=== PATIENT | male | born 1970 | race African-American/Black ===

== ENCOUNTER 2018-12-16 18:27 | Inpatient (IN) | payer OTHER ==
--- NOTE | 2018-12-16 18:44 | PDOC ---
Rapid Medical Evaluation Time Seen by Provider: 12/16/18 18:43 Medical Evaluation: 12/16/18 18:43 HPI: Abdominal pain x 2 days PE: No gross deficits ORDERS: Belly labs Discharge Disposition - Diagnosis Abdominal pain - Referrals - Patient Instructions - Post Discharge Activity
[2018-12-16 18:47] VITALS: BMI 18.8
[2018-12-16 21:11] LABS: BASO % 0.8 % (0-2.0); EOS % 0.1 % (0-4.5); HEMATOCRIT 40.1 % (35.4-49); HEMOGLOBIN 12.9 GM/dL (11.7-16.9); LYMPH % 7.5 % (8-40); MCH 24.3 pg (25.7-33.7); MCHC 32.1 g/dl (32.0-35.9); MEAN CELL VOLUME 75.7 fl (80-96); MEAN PLT VOLUME 8.8 fl (7.5-11.1); MONO % 5.1 % (3.8-10.2); NEUT % 86.5 % (42.8-82.8); PLATELET COUNT 161 K/MM3 (134-434); RBC 5.29 M/mm3 (4.00-5.60); RDW 14.3 % (11.9-15.9); WHITE BLOOD COUNT 10.6 K/mm3 (4.0-10.0)
--- NOTE | 2018-12-16 21:16 | PDOC ---
*Physical Exam - Vital Signs Last Vital Signs Temp Pulse Resp BP Pulse Ox 97.9 F 65 26 H 117/76 99 12/16/18 18:44 12/16/18 18:44 12/16/18 18:44 12/16/18 18:44 12/16/18 18:44 ED Treatment Course - LABORATORY CBC & Chemistry Diagram: 12/16/18 20:50 12/16/18 20:50 Medical Decision Making - Medical Decision Making 12/16/18 21:16 Patient seen by the advanced practice provider under my direct supervision. Ancillary testing reviewed as necessary. I agree with plan as outlined by the advanced practice provider. *DC/Admit/Observation/Transfer Diagnosis at time of Disposition: Pulmonary infarct - Discharge Dispostion Condition at time of disposition: Fair - Referrals - Patient Instructions - Post Discharge Activity
[2018-12-16 21:39] LABS: ALBUMIN 3.8 g/dl (3.4-5.0); BILIRUBIN,TOTAL 0.5 mg/dL (0.2-1); BLOOD UREA NITROGEN 12.9 mg/dL (7-18); CALCIUM 9.1 mg/dL (8.5-10.1); POTASSIUM 4.3 mmol/L (3.5-5.1)
--- NOTE | 2018-12-16 21:52 | PDOC ---
History of Present Illness - General Chief Complaint: Pain, Acute Stated Complaint: PAIN TO RT SIDE Time Seen by Provider: 12/16/18 18:43 History Source: Patient Exam Limitations: No Limitations - History of Present Illness Travel History: No Initial Comments: 12/16/18 21:34 HISTORY OF PRESENT ILLNESS: 48-year-old male denies medical history of presents emergency department for evaluation of right-sided abdominal pain over the past 3 days. Patient reports the pain came on all of a sudden slowly progressed throughout his abdomen. Patient is unable to identify exact location of his pain at this time. Patient is unable to identify any aggravating or alleviating factors. Patient denies any nausea, vomiting, constipation, diarrhea, dysuria or hematuria. Patient reports he drinks approximately one cup of raji 4 times a week. No recent travel or sick contacts. PAST MEDICAL HISTORY: Denies past medical history SURGICAL HISTORY: Denies ALLERGIES: No known drug allergies REVIEW OF SYSTEMS General/Constitutional: Denies fever or chills. Denies weakness, weight change. HEENT: Denies change in vision. Denies ear pain or discharge. Denies sore throat. Cardiovascular: Denies chest pain or shortness of breath. Respiratory: (+)cough Gastrointestinal: see HPI Genitourinary: Denies dysuria, frequency, or change in urination. Musculoskeletal: Denies joint or muscle swelling or pain. Denies neck or back pain. Skin and breasts: Denies rash or easy bruising. Neurologic: Denies headache, vertigo, loss of consciousness, or loss of sensation. Psychiatric: Denies depression or anxiety. Endocrine: Denies increased thirst. Denies abnormal weight change. Hematologic/Lymphatic: Denies anemia, easy bleeding, or history of blood clots. Allergic/Immunologic: Denies hives or skin allergy. Denies latex allergy. PHYSICAL EXAM General Appearance: Well-appearing, appropriately dressed. No apparent distress , no intoxication. Respiratory/Chest: Lungs CTAB. No shortness of breath, chest tenderness, respiratory distress, accessory muscle use. No crackles, rales, rhonchi, stridor , wheezing, dullness Cardiovascular: RRR. S1, S2. No JVD, murmur, bradycardia, tachycardia. Vascular Pulses: Dorsalis-Pedis (R): 2+, Dorsalis-Pedis (L): 2+ Gastrointestinal/Abdominal: Normal bowel sounds. Abdomen soft, non-distended. Diffuse tenderness with guarding. No rebound tenderness. No organomegaly, pulsatile mass, hernia, hepatomegaly, splenomegaly. Lymphatic: No adenopathy, tenderness. Musculoskeletal/Extremities: Normal inspection. FROM of all extremities, normal capillary refill. Pelvis Stable. No CVA tenderness. No tenderness to extremities, pedal edema, swelling, erythema or deformity. I Past History - Past Medical History Allergies/Adverse Reactions: Allergies Allergy/AdvReac Type Severity Reaction Status Date / Time No Known Allergies Allergy Verified 12/16/18 18:43 Home Medications: Ambulatory Orders NK [No Known Home Medication] 12/16/18 COPD: No - Suicide/Smoking/Psychosocial Hx Smoking History: Current every day smoker Information on smoking cessation initiated: No Hx Alcohol Use: No Drug/Substance Use Hx: No *Physical Exam - Vital Signs Last Vital Signs Temp Pulse Resp BP Pulse Ox 97.9 F 65 26 H 117/76 99 12/16/18 18:44 12/16/18 18:44 12/16/18 18:44 12/16/18 18:44 12/16/18 18:44 ED Treatment Course - LABORATORY CBC & Chemistry Diagram: 12/17/18 08:18 12/17/18 08:18 - RADIOLOGY Radiology Studies Ordered: Category Date Time Status ABDOMEN & PELVIS CT WITH CONTR [CT] Stat CT Scan 12/16/18 21:33 Ordered CHEST PA & LAT [RAD] Stat Radiology 12/16/18 21:33 Ordered Medical Decision Making - Medical Decision Making 12/16/18 21:52 A/P: 48-year-old male with diffuse abdominal pain for 3 days Differential diagnosis includes but is not limited to- perforation, obstruction , diverticulitis, urinary tract infection, hepatitis, choledocholithiasis, cholecystitis Labs Urine CT of the abdomen and pelvis with oral and IV contrast Normal saline 1 L bolus Morphine 2 mg IV Reassess 12/17/18 00:46 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 Likely bilateral PEs but has received IV contrast for abdominal exam unable to repeat. EKG Cardiac profile Guaiac Anticoagulation Dilaudid Admit to the hospitalist service *DC/Admit/Observation/Transfer Diagnosis at time of Disposition: Pulmonary infarct - Discharge Dispostion Condition at time of disposition: Fair Decision to Admit order: Yes - Referrals - Patient Instructions - Post Discharge Activity
[2018-12-16] MEDS ORDERED: SODIUM CHLORIDE 1,000 ML IV STA (21:53)
[2018-12-16] MEDS ORDERED: ONDANSETRON 4 MG/2 ML VIAL IVPUSH ONE (21:53)
[2018-12-16] MEDS ORDERED: morphine CARPU-JECT 2 MG/1 ML DISP.SYRIN IVPUSH ONE (21:53)
[2018-12-16] MEDS ORDERED: ONDANSETRON 4 MG/2 ML VIAL ONE (21:59)
[2018-12-16] MEDS ORDERED: MORPHINE SULFATE 2 MG/ML VIAL ONE (21:59)
[2018-12-17] MEDS ORDERED: HYDROmorphone HCL CARPU-JECT 2 MG/1 ML DISP.SYRIN IVPUSH ONE (00:47)
[2018-12-17] MEDS ORDERED: HYDROmorphone HCl 2 MG/ML VIAL ONE (00:47)
--- NOTE | 2018-12-17 00:52 | PN ---
Teaching Attending Note ATTENDING PHYSICIAN STATEMENT I saw and evaluated the patient. I reviewed the resident's note and discussed the case with the resident. I agree with the resident's findings and plan as documented. Seen and examined; please refer to resident note for further historical information. Briefly, this is a 48 y/o male presenting for R-sided abdominal pain found to have benign findings on abd CT but was found to have b/l pulmonary emboli on exam. He recently took a long train ride up to [facility] from [place]. He is a daily marijuana smoker and occasional tobacco smoker. Not on home AC, just moved to town from [place]. Pain was sudden onset. Admitting to telemetry with pulmonary consult VS, labs, imaging reviewed NAD, AAO, resting in bed Not tachy, s1/2 NC AT EOMI PERRLA NT ND +BS CN2-12 wnl, no fnd Normal mood, appropriate behavior EKG reviewed CXR reviewed CT personally reviewed; prelim report shows potential b/l PE with infarcts. ASSESSMENT AND PLAN: Patient presenting with abd pain found to have potential b/l PE/infarction. # Potential PE with infarction -Checking repeat troponin, check echo for R-sided strain (bedside study in ER showed some R-sided hyperdynamic changes and dilated IVC). 1mg/kg lovenox and plan to transition to PO NOAC in AM. -Consulting pulmonary -Incentive spirometry -Hypercoag workup # Marijuana Abuse -Told to stop # Tobacco Abuse -Told to stop Full Code
[2018-12-17] MEDS ORDERED: HEPARIN NA (PORCINE) 5,000 UNITS/ML 1ML VIAL IVPUSH PRN (00:53)
[2018-12-17] MEDS ORDERED: HEPARIN INFUSION - 25,000 UNITS/500 ML INFUS.BAG IVPB ONE (01:39)
[2018-12-17] MEDS: HEPARIN - 25,000 UNIT in SODIUM CHLORIDE 495 ML IV SCH (02:10)
--- NOTE | 2018-12-17 02:17 | HP ---
CHIEF COMPLAINT: Right rib pain PCP: none HISTORY OF PRESENT ILLNESS: 48 y/o M, pmh of juan, immigrated from [place], presents w/ lateral rib pain of 2 day duration that worsened today morning. 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 This morning the pain became severe and he was moderately SOB which led him to the ED. He said he had smoked marijuana and cigarettes to relieve the pain but there was no response. Pt gives no previous hx of similar episodes. Pt reports he has not seen a doctor in several years. He reports negative TB test several years ago and an abx treated gonorrhea infxn. Pt admits to night sweats after drinking cessation for a few weeks several months ago, recent weight loss which he attributes to landscaping, new onset hemoptysis in the CT room today. Currently, pt is stable and has no c/o. Denies f/c/n/v, sob, chest pain, diarrhea, numbness, tingling. ROS is negative. ER course was notable for: (1) Heparin Drip started in ED (2) CT a/p w/ contrast- deep filling defects in b/l lower lobe 2/2 to pulmonary emboli+infract, right middle lobe and left middle lobe ground glass opacities likely 2/2 to infract or atelectasis. (3) Dilaudid given for pain Recent Travel: last travel 29 years ago- [facility] PAST MEDICAL HISTORY: gonorrhea infxn in 1990. No other hx PAST SURGICAL HISTORY: denies Social History: Smoking: marijuana- 20 blunts a day, ciggs- 3-4/day Alcohol: half a bottle in a week Drugs: denies Family History: Mother- DM- Father- from murder Allergies No Known Allergies Allergy (Verified 12/16/18 18:43) HOME MEDICATIONS: Home Medications Medication Instructions Recorded NK [No Known Home Medication] 12/16/18 REVIEW OF SYSTEMS CONSTITUTIONAL: Admits: weight loss, night sweat Absent: fever, chills, diaphoresis, generalized weakness, malaise, loss of appetite, CARDIOVASCULAR: Absent: chest pain, syncope, palpitations, irregular heart rate, lightheadedness , RESPIRATORY: Admits: mild shortness of breath, hemoptysis Absent: cough, dyspnea with exertion, wheezing, GASTROINTESTINAL: Absent: abdominal pain, abdominal distension, nausea, vomiting, diarrhea, constipation, melena, hematochezia GENITOURINARY: Absent: dysuria, frequency, hematuria, flank pain, genital pain NEUROLOGIC: Absent: headache, focal weakness, dizziness, unsteady gait, seizure, bladder or bowel incontinence PSYCHIATRIC: Absent: anxiety PHYSICAL EXAMINATION Vital Signs - 24 hr Last Vital Signs Temp Pulse Resp BP Pulse Ox 97.9 F 78 26 H 131/96 95 12/16/18 18:44 12/17/18 00:50 12/17/18 00:50 12/17/18 00:50 12/17/18 00:50 GENERAL: Awake, alert, and fully oriented, in no acute distress. EYES: Pupils equal, round and reactive to light, extraocular movements intact NECK: Supple without lymphadenopathy, JVD, or masses. LUNGS: Decreased breath sounds b/l lower lobes. Breath sounds equal, clear to auscultation bilaterally. No wheezes, and no crackles. Accessory muscle use can be appreciated. Hemoptysis collected in CT room. HEART: Regular rate and rhythm, normal S1 and S2 without murmur, rub or gallop. ABDOMEN: Soft, nontender, not distended, normoactive bowel sounds, no guarding, no rebound, no masses. No hepatomegaly or splenomegaly. UPPER EXTREMITIES: 2+ pulses, warm, well-perfused. No cyanosis. No peripheral edema. LOWER EXTREMITIES: 2+ pulses, warm, well-perfused. No peripheral edema. PSYCHIATRIC: Cooperative. Good eye contact. Appropriate mood and affect. Laboratory Results - last 24 hr CBC, BMP 12/16/18 20:50 12/16/18 20:50 ASSESSMENT/PLAN: 48 y/o M, pmh of gonnorhea, presents w/ lateral rib pain of 2 day duration that worsened today morning 2/2 CT confirmed pulmonary infract. #)Pulmonary infract 2/2 to PE Heparin bolus given Heparin drip started FOBT neg EKG- no acute changes, QTc 447 CXR- right lower lobe changes and opacity noticeable CT a/p w/ contrast- deep filling defects in b/l lower lobe 2/2 to pulmonary emboli+infract, right middle lobe and left middle lobe ground glass opacities likely 2/2 to infract or atelectasis. CTA chest ordered because defect was seen on CT a/p which only showed lower lobes but CTA cannot be done at this time due to recent contrast use, wait 24-[address] Pulmonary consulted- Dr. Wolf- will consider V/Q scan if necessary before CTA chest Pt on Oxygen nc 2 Ipm Continous cardiac monitoring D-dimer ordered Protein C + S ordered PT/INR ordered Sputum Cx + Urine Cx ordered Incentive Spirometry #)Night sweats, weight loss TB test ordered HIV testing ordered Chlamydia testing ordered Anti-nuclear abs + ESR + CRP ordered #)DVT ppx Heparin drip FEN: Regular diet Dispo: monitor tele, f/u on w/ Pulmonary for V/Q scan vs CTA chest Visit type - Emergency Visit Emergency Visit: Yes ED Registration Date: 12/17/18 Care time: The patient presented to the Emergency Department on the above date and was hospitalized for further evaluation of their emergent condition. - New Patient This patient is new to me today: Yes Date on this admission: 12/23/18 - Critical Care Critical Care patient: No ATTENDING PHYSICIAN STATEMENT I saw and evaluated the patient. I reviewed the resident's note and discussed the case with the resident. I agree with the resident's findings and plan as documented. SUBJECTIVE: OBJECTIVE: ASSESSMENT AND PLAN:
[2018-12-17 03:24] LABS: INR 1.07 (0.83-1.09); PROTHROMBIN TIME (PATIENT) 12.6 SEC (9.7-13.0)
--- NOTE | 2018-12-17 08:20 | PN ---
Teaching Attending Note Name of Resident: Roland Tellez ATTENDING PHYSICIAN STATEMENT I saw and evaluated the patient. I reviewed the resident's note and discussed the case with the resident. I agree with the resident's findings and plan as documented. SUBJECTIVE: C/O hemoptysis and cough no chest pain or SOB OBJECTIVE: Vital Signs Temperature 97.9 F 12/16/18 18:44 Pulse Rate 82 12/17/18 06:09 Respiratory Rate 20 12/17/18 06:09 Blood Pressure 116/84 12/17/18 06:09 O2 Sat by Pulse Oximetry (%) 100 12/17/18 06:09 HEENT: Mm moist, no anemia NECK: No significant LN CHEST: Occasional crepts +, no wheezing CVS; S1S2 R no m/g/r ABD: No distention, non tender Bs + EXT: no Edema feet, no calf tenderness CBC, BMP 12/17/18 08:18 12/17/18 08:18 EKG: no acute ST T changes CT abd: Rt LL infiltrate B/L Lung infarct CXR: basal infiltrates ECHO: Normal LE Doppler: No DVT ASSESSMENT AND PLAN:48 yrs old man admitted with hemoptysis, abd pain CT abd shows B/LL Infarct Rt sided infiltrates, CT chest is pending Impression; B/L PE ? DVT scn -ve only risk factor is travelling from [place] to [facility] by train, CTA with PE [protocol is pending needs w/u for age appropriate/ risk specific malignancy w/u CT chest (smoker) PSA, HIV testing, sickle cell trait, Pulmonary consult F/u pending w/u considering hemoptysis will defer Lovenox or NOAC, consider hematology consult. Pneumonia; will treat as CABP Ceftriaxone and Azithromycine f/u Sputum culture and Gram stain Problem List - Problems (1) Pulmonary infarct Code(s): I26.99 - OTHER PULMONARY EMBOLISM WITHOUT ACUTE COR PULMONALE (2) Pneumonia Code(s): J18.9 - PNEUMONIA, UNSPECIFIED ORGANISM
[2018-12-17 08:34] LABS: HEMATOCRIT 36.9 % (35.4-49); HEMOGLOBIN 11.9 GM/dL (11.7-16.9); MCH 23.9 pg (25.7-33.7); MCHC 32.1 g/dl (32.0-35.9); MEAN CELL VOLUME 74.5 fl (80-96); MEAN PLT VOLUME 8.2 fl (7.5-11.1); PLATELET COUNT 145 K/MM3 (134-434); RBC 4.96 M/mm3 (4.00-5.60); RDW 14.4 % (11.9-15.9); WHITE BLOOD COUNT 8.7 K/mm3 (4.0-10.0)
[2018-12-17 08:51] LABS: URINE APPEARANCE CLEAR; URINE BILIRUBIN NEGATIVE (NEGATIVE); URINE COLOR YELLOW; URINE GLUCOSE (UA) NEGATIVE (NEGATIVE); URINE KETONE NEGATIVE (NEGATIVE)
[2018-12-17 08:52] LABS: URINE LEUK ESTERASE NEGATIVE (NEGATIVE); URINE NITRITE NEGATIVE (NEGATIVE); URINE PROTEIN NEGATIVE (NEGATIVE); URINE UROBILINOGEN 0.2 mg/dL (0.2-1.0)
[2018-12-17 08:57] LABS: INR 1.06 (0.83-1.09); PROTHROMBIN TIME (PATIENT) 12.5 SEC (9.7-13.0)
[2018-12-17 09:00] LABS: ACTIVATED PTT 37.6 SECONDS (25.2-36.5)
[2018-12-17 09:13] LABS: ALBUMIN 3.4 g/dl (3.4-5.0); BILIRUBIN,TOTAL 0.9 mg/dL (0.2-1); BLOOD UREA NITROGEN 7.8 mg/dL (7-18); CALCIUM 8.7 mg/dL (8.5-10.1); CREATININE 0.8 mg/dL (0.55-1.3); TOT PROT 7.1 g/dl (6.4-8.2)
--- NOTE | 2018-12-17 11:25 | EKG ---
Test Reason : Blood Pressure : / mmHG Vent. Rate : 080 BPM Atrial Rate : 080 BPM P-R Int : 126 ms QRS Dur : 098 ms QT Int : 388 ms P-R-T Axes : 061 046 043 degrees QTc Int : 447 ms NORMAL SINUS RHYTHM NORMAL ECG NO PREVIOUS ECGS AVAILABLE Confirmed by Thomas Lanier MD ([id number]) on 12/17/2018 11:24:52 AM Referred By: Confirmed By:Thomas Lanier MD
--- NOTE | 2018-12-17 11:53 | ECHO ---
Version: 1 Name: MARIAH TYLER Exam: Adult Echocardiogram Study Date: 12/17/2018, 9:54 AM Age: 48 Years MMode/2D Measurements & Calculations IVSd: 0.79 cm LVIDs: 2.6 cm LVIDd: 4.0 cm LVPWd: 0.77 cm ACS: 2.20 cm LVOT diam: 1.99 cm Doppler Measurements & Calculations MV E max osmany: 84.9 cm/sec Med E/e': 7.1 MV A max osmany: 71.6 cm/sec Med Peak E' Osmany: 11.9 cm/sec MV E/A: 1.19 Lat E/e': 4.7 Lat Peak E' Osmany: 18.0 cm/sec MR max P.5 mmHg Ao max P.1 mmHg DIDI(I,D): 2.7 cm Ao mean P.1 mmHg LV V1 mean: 64.3 cm/sec Ao V2 max: 113.4 cm/sec LV V1 mean P.06 mmHg TR max osmany: 240.8 cm/sec TR max P.7 mmHg Left Ventricle The left ventricular size, thickness and function are normal. Right Ventricle The right ventricle is normal in size and function. Atria Normal left and right atrial size and function. Mitral Valve The mitral valve is normal in structure and function. There is trace mitral regurgitation. Tricuspid Valve The tricuspid valve is normal in structure and function. There is mild tricuspid regurgitation. Aortic Valve The aortic valve is normal in structure and function. Pulmonic Valve The pulmonic valve is normal in structure and function. Great Vessels The aortic root is normal size. Pericardium/Pleura There is no pericardial effusion. Summary Statements The left ventricular size, thickness and function are normal The right ventricle is normal in size and function. Normal left and right atrial size and function. The mitral valve is normal in structure and function. The tricuspid valve is normal in structure and function. The aortic valve is normal in structure and function. EF 64% PASP 32 mmHg MD Juan C Wiggins 12/17/2018, 10:52 AM Ordering Physician: Wilma Del Castillo Performed By: Shelly Reed
[2018-12-17] MEDS ORDERED: ENOXAPARIN NA (PORCINE) 60 MG/0.6 ML DISP.SYRIN SQ SCH (12:15)
[2018-12-17] MEDS ORDERED: AZITHROMYCIN IVPB 500 MG/250 ML BAG IVPB ONE ×2 (13:54→15:46)
[2018-12-17] MEDS: CEFTRIAXONE 1 GM in DEXTROSE 5%-WATER - 50 ML IVPB SCH (15:47)
[2018-12-17] MEDS: SODIUM CHLORIDE 1,000 ML IV SCH (15:47)
[2018-12-17] MEDS ORDERED: CEFTRIAXONE 1 GM/50 ML BAG ONE (15:47)
--- NOTE | 2018-12-17 16:10 | CON.PULM ---
Consult Consult Specialty:: PULM/CCM Referred by:: Hospitalist Reason for Consultation:: SOB / PE - History of Present Illness Chief Complaint: right lateral chest pain History of Present Illness: 48 M, originally from [facility]. (-) PPD when he came to the [place] more than 20 years ago. Active smoker of tobacco and marijuana. Recent train ride from [place] (second time he has taken that trip). No previous personal or family history of VTE. Admitted via the ER due to worsening right lateral muscle wall pain. CT of Abdomen and Pelvis revealed filling defects in bilateral LL circulation consistent with PE. Also noted were wedge like opacities in both lower lobes consistent with infarct +/- infiltrates. Patient reports a small amount of hemoptysis after his CT scan which he estimates as maybe enough to cover the tips of 1 to 2 fingers. No previous hemoptysis. No sick contacts. 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 - History Source History Provided By: Patient Limitations to Obtaining History: No Limitations - Past Medical History Pulmonary: Yes: Bronchitis. No: Asthma, Cancer, COPD, O2 Dependent, Pneumonia, Previously Intubated, Pulmonary Embolus, Pulmonary Fibrosis, Sleep Apnea - Alcohol/Substance Use Hx Alcohol Use: No - Smoking History Smoking history: Current every day smoker Home Medications - Allergies Allergies/Adverse Reactions: Allergies Allergy/AdvReac Type Severity Reaction Status Date / Time No Known Allergies Allergy Verified 12/16/18 18:43 - Home Medications Home Medications: Ambulatory Orders NK [No Known Home Medication] 12/16/18 Review of Systems - Review of Systems Constitutional: reports: Malaise, Unintentional Wgt. Loss. denies: Chills, Lethargy, Night Sweats Eyes: reports: No Symptoms HENT: reports: No Symptoms Neck: reports: No Symptoms Cardiovascular: reports: Chest Pain, Shortness of Breath. denies: Edema, Palpitations Respiratory: reports: Cough, Hemoptysis, SOB, SOB on Exertion. denies: Orthopnea, PND, Snoring, Wheezing Gastrointestinal: reports: No Symptoms Genitourinary: reports: No Symptoms Breasts: reports: No Symptoms Reported Musculoskeletal: reports: No Symptoms Integumentary: reports: No Symptoms Neurological: reports: No Symptoms Endocrine: reports: No Symptoms Hematology/Lymphatic: reports: No Symptoms Psychiatric: reports: No Symptoms Physical Exam Vital Sings: Vital Signs Temperature 97.9 F 08/12/19 18:44 Pulse Rate 84 12/17/18 09:57 Respiratory Rate 16 12/17/18 09:57 Blood Pressure 135/84 12/17/18 09:57 O2 Sat by Pulse Oximetry (%) 100 12/17/18 09:57 Constitutional: Yes: No Distress, Calm, Thin Eyes: Yes: Conjunctiva Clear, EOM Intact HENT: Yes: Atraumatic, Normocephalic Neck: Yes: Supple, Trachea Midline Cardiovascular: Yes: Regular Rate and Rhythm Respiratory: Yes: Cough, Poor Air Entry, Rhonchi, SOB on Exertion, Tachypnea, Wheezes. No: Accessory Muscle Use, Rales, SOB, Stridor ...Inspection: Yes: WNL ...Clubbing: No Gastrointestinal: Yes: Normal Bowel Sounds, Soft Renal/: Yes: WNL Musculoskeletal: Yes: WNL Extremities: Yes: WNL Edema: No Peripheral Pulses WNL: Yes Integumentary: Yes: WNL Neurological: Yes: WNL, Alert, Oriented ...Motor Strength: WNL Psychiatric: Yes: WNL, Alert, Oriented Labs: CBC, BMP 12/17/18 08:18 12/17/18 08:18 Imaging - Results Chest X-ray: Report Reviewed, Image Reviewed Cat Scan: Report Reviewed, Image Reviewed Problem List - Problems (1) Bilateral pulmonary embolism Code(s): I26.99 - OTHER PULMONARY EMBOLISM WITHOUT ACUTE COR PULMONALE (2) Smoker Code(s): F17.200 - NICOTINE DEPENDENCE, UNSPECIFIED, UNCOMPLICATED (3) Pneumonia Code(s): J18.9 - PNEUMONIA, UNSPECIFIED ORGANISM (4) Pulmonary infarct Code(s): I26.99 - OTHER PULMONARY EMBOLISM WITHOUT ACUTE COR PULMONALE Assessment/Plan ECHO to R/O Right heart strain (no clear evidence by CT criteria) Will need thrombosis workup O2 as needed Agree with empiric ABX for now to cover for CABP although this appears like infarct due to distribution Incentive Spirometry IVF: 2 liters as the patient received 2 loads of IV contrast Will need age appropriate malignancy screening (has had very poor medical follow up) Smoking cessation discussed Outpatient PFTs No evidence to suggest [facility] Will follow Thank you. Dr Ding
[2018-12-17] MEDS ORDERED: HEPARIN NA (PORCINE) 5,000 UNITS/ML 1ML VIAL ONE (17:17)
[2018-12-17] MEDS: HEPARIN NA (PORCINE) 5,000 UNITS/ML 1ML VIAL IVPUSH PRN (17:20)
--- NOTE | 2018-12-17 17:33 | PN ---
Physical Exam: SUBJECTIVE: Patient seen and examined at bedside. No acute events. OBJECTIVE: Vital Signs Period Temp Pulse Resp BP Sys/Wilson Pulse Ox Last 24 Hr 97.9 F-99.8 F 65-85 12-26 112-135/72-96 95-100 GENERAL: The patient is awake, alert, and fully oriented, in slight resp distress. HEAD: Normal with no signs of trauma. NECK: supple. LUNGS: Breath sounds difficult to assess due to patient not able to take full deep breath, mild wheezes b/l. HEART: Regular rate and rhythm, S1, S2 without murmur, rub or gallop. ABDOMEN: Soft, nontender, nondistended, no guarding, no rebound. EXTREMITIES: no tenderness to palpation of gastrocs, warm, well-perfused, no edema. NEUROLOGICAL: Cranial nerves II through XII grossly intact. Normal speech, gait not observed. PSYCH: Normal mood, normal affect. SKIN: Warm, dry, no rashes or lesions noted Laboratory Results - last 24 hr 12/16/18 12/16/18 12/17/18 20:50 20:50 00:50 WBC 10.6 H RBC 5.29 Hgb 12.9 Hct 40.1 MCV 75.7 L MCH 24.3 L MCHC 32.1 RDW 14.3 Plt Count 161 MPV 8.8 Absolute Neuts (auto) 9.1 H Neutrophils % 86.5 H Lymphocytes % 7.5 L Monocytes % 5.1 Eosinophils % 0.1 Basophils % 0.8 Nucleated RBC % 0 ESR PT with INR INR PTT (Actin FS) D-Dimer Sodium 138 Potassium 4.3 Chloride 103 Carbon Dioxide 29 Anion Gap 6 L BUN 12.9 Creatinine 1.0 Est GFR (CKD-EPI)AfAm 101.26 Est GFR (CKD-EPI)NonAf 87.37 Random Glucose 183 H Calcium 9.1 Total Bilirubin 0.5 AST 14 L ALT 21 Alkaline Phosphatase 78 Creatine Kinase Creatine Kinase Index CK-MB (CK-2) Troponin I C-Reactive Protein Total Protein 8.0 Albumin 3.8 Urine Color Urine Appearance Urine pH Ur Specific [place] Urine Protein Urine Glucose (UA) Urine Ketones Urine Blood Urine Nitrite Urine Bilirubin Urine Urobilinogen Ur Leukocyte Esterase Stool Occult Blood Negative 12/17/18 12/17/18 12/17/18 02:02 02:02 02:02 WBC RBC Hgb Hct MCV MCH MCHC RDW Plt Count MPV Absolute Neuts (auto) Neutrophils % Lymphocytes % Monocytes % Eosinophils % Basophils % Nucleated RBC % ESR PT with INR 12.60 INR 1.07 PTT (Actin FS) D-Dimer Sodium Potassium Chloride Carbon Dioxide Anion Gap BUN Creatinine Est GFR (CKD-EPI)AfAm Est GFR (CKD-EPI)NonAf Random Glucose Calcium Total Bilirubin AST ALT Alkaline Phosphatase Creatine Kinase 181 Creatine Kinase Index 0.5 CK-MB (CK-2) 1.0 Troponin I < 0.02 C-Reactive Protein 4.9 H Total Protein Albumin Urine Color Urine Appearance Urine pH Ur Specific [place] Urine Protein Urine Glucose (UA) Urine Ketones Urine Blood Urine Nitrite Urine Bilirubin Urine Urobilinogen Ur Leukocyte Esterase Stool Occult Blood 12/17/18 12/17/18 12/17/18 02:02 02:02 06:39 WBC RBC Hgb Hct MCV MCH MCHC RDW Plt Count MPV Absolute Neuts (auto) Neutrophils % Lymphocytes % Monocytes % Eosinophils % Basophils % Nucleated RBC % ESR 12 PT with INR INR PTT (Actin FS) D-Dimer 1488 H Sodium Potassium Chloride Carbon Dioxide Anion Gap BUN Creatinine Est GFR (CKD-EPI)AfAm Est GFR (CKD-EPI)NonAf Random Glucose Calcium Total Bilirubin AST ALT Alkaline Phosphatase Creatine Kinase Creatine Kinase Index CK-MB (CK-2) Troponin I C-Reactive Protein Total Protein Albumin Urine Color Yellow Urine Appearance Clear Urine pH 5.0 Ur Specific [place] 1.047 H Urine Protein Negative Urine Glucose (UA) Negative Urine Ketones Negative Urine Blood Negative Urine Nitrite Negative Urine Bilirubin Negative Urine Urobilinogen 0.2 Ur Leukocyte Esterase Negative Stool Occult Blood 12/17/18 12/17/18 12/17/18 07:45 08:18 08:18 WBC 8.7 RBC 4.96 Hgb 11.9 Hct 36.9 MCV 74.5 L MCH 23.9 L MCHC 32.1 RDW 14.4 Plt Count 145 MPV 8.2 Absolute Neuts (auto) Neutrophils % Lymphocytes % Monocytes % Eosinophils % Basophils % Nucleated RBC % ESR PT with INR INR PTT (Actin FS) 33.6 D-Dimer Sodium 136 Potassium 4.0 Chloride 103 Carbon Dioxide 29 Anion Gap 5 L BUN 7.8 Creatinine 0.8 Est GFR (CKD-EPI)AfAm 120.72 Est GFR (CKD-EPI)NonAf 104.16 Random Glucose 114 H Calcium 8.7 Total Bilirubin 0.9 AST 18 ALT 19 Alkaline Phosphatase 68 Creatine Kinase Creatine Kinase Index CK-MB (CK-2) Troponin I C-Reactive Protein Total Protein 7.1 Albumin 3.4 Urine Color Urine Appearance Urine pH Ur Specific [place] Urine Protein Urine Glucose (UA) Urine Ketones Urine Blood Urine Nitrite Urine Bilirubin Urine Urobilinogen Ur Leukocyte Esterase Stool Occult Blood 12/17/18 12/17/18 08:18 15:54 WBC RBC Hgb Hct MCV MCH MCHC RDW Plt Count MPV Absolute Neuts (auto) Neutrophils % Lymphocytes % Monocytes % Eosinophils % Basophils % Nucleated RBC % ESR PT with INR 12.50 INR 1.06 PTT (Actin FS) 37.6 H 49.7 H D-Dimer Sodium Potassium Chloride Carbon Dioxide Anion Gap BUN Creatinine Est GFR (CKD-EPI)AfAm Est GFR (CKD-EPI)NonAf Random Glucose Calcium Total Bilirubin AST ALT Alkaline Phosphatase Creatine Kinase Creatine Kinase Index CK-MB (CK-2) Troponin I C-Reactive Protein Total Protein Albumin Urine Color Urine Appearance Urine pH Ur Specific [place] Urine Protein Urine Glucose (UA) Urine Ketones Urine Blood Urine Nitrite Urine Bilirubin Urine Urobilinogen Ur Leukocyte Esterase Stool Occult Blood Active Medications Generic Name Dose Route Start Last Admin Trade Name Freq PRN Reason Stop Dose Admin Heparin Sodium (Porcine) 1,000 unit 12/17/18 00:53 12/17/18 17:20 Heparin - IVPUSH 1,000 unit PRN PRN Administration Heparin Heparin Sodium (Porcine) 5,000 unit 12/17/18 00:53 12/17/18 09:57 Heparin - IVPUSH 5,000 unit PRN PRN Administration Heparin Heparin Sodium (Porcine) 25, 500 mls @ 16 mls/hr 12/17/18 01:00 12/17/18 09: 57 000 unit/ Sodium Chloride IV 950 unit/hr TITR CORY 19 mls/hr Titration Protocol 800 UNIT/HR Ceftriaxone Sodium 1 gm/ 50 mls @ 100 mls/hr 12/17/18 14:30 12/17/18 15:47 Dextrose IVPB 100 mls/hr DAILY CORY Administration Sodium Chloride 1,000 mls @ 83 mls/hr 12/17/18 15:15 12/17/18 15:47 Normal Saline - IV 12/19/18 03:18 83 mls/hr ASDIR CORY Administration ASSESSMENT/PLAN: Images: CTA: acute PE, bibasilar atelect, very small rt pleural effusion, mild emphysema , several nonsepcific enlarged Rt hilar LN's, RLL pulm artery and distal segmental branches, acute segmental embolus noted w/in medial basal segment of LLL. CXR- right lower lobe changes and opacity noticeable CT a/p w/ contrast- deep filling defects in b/l lower lobe 2/2 to pulmonary emboli+infract, right middle lobe and left middle lobe ground glass opacities likely 2/2 to infract or atelectasis. 48 y/o M, w a PMH of gonnorhea, presents w/ lateral rib pain of 2 day duration that worsened today morning 2/2 CT confirmed pulmonary infract. #Acute pulmonary embolus 2/2 to possible recent train ride from [place] - needs further thrombosis w/u. - hemoptysis - Heparin gtt 500mL's @16Ml/hr plan is to switch to NOAC eventually. - FOBT neg EKG- no acute changes, QTc 447 - b/l duplex negative Pulmonary consulted: Dr. Ding- echo to r/o Rt heart strain (no clear evidency by CT criteria) . O2 as needed. Agrees w rocephin to cover CAP although appears to be infarct due to distribution. - Pt needs IVF 2L to cover the 2 loads of contrast. Sputum Cx, stain pending, UA legionella/strep negative. Pt on Oxygen nc 2 Ipm Continous cardiac monitoring [id number] Protein C + S ordered PT/INR 1.07, trop negative Incentive Spirometry #)Night sweats, weight loss, hemoptysis QFN ordered HIV testing ordered Chlamydia testing ordered Anti-nuclear abs + ESR + CRP 4.9 - sickle cell ordered, CTA now signs of malignancy. DVT ppx: Heparin drip FEN: Regular diet Dispo: monitor tele Visit type - Emergency Visit Emergency Visit: Yes ED Registration Date: 12/17/18 Care time: The patient presented to the Emergency Department on the above date and was hospitalized for further evaluation of their emergent condition. - New Patient This patient is new to me today: Yes Date on this admission: 12/17/18 - Critical Care Critical Care patient: No - Discharge Referral Referred to [facility] Med P.C.: No ATTENDING PHYSICIAN STATEMENT I saw and evaluated the patient. I reviewed the resident's note and discussed the case with the resident. I agree with the resident's findings and plan as documented. SUBJECTIVE: OBJECTIVE: ASSESSMENT AND PLAN:
[2018-12-17] MEDS ORDERED: ACETAMINOPHEN 1000 MG/100 ML VIAL (NON FORMULARY) IVPB ONE (20:33)
[2018-12-18] MEDS: HEPARIN - 25,000 UNIT in SODIUM CHLORIDE 495 ML IV SCH (03:37)
[2018-12-18] MEDS: SODIUM CHLORIDE 1,000 ML IV SCH (04:00)
[2018-12-18 07:35] LABS: BASO % 0.8 % (0-2.0); EOS % 0.3 % (0-4.5); HEMATOCRIT 36.8 % (35.4-49); LYMPH % 15.8 % (8-40); MCH 24.3 pg (25.7-33.7); MCHC 32.5 g/dl (32.0-35.9); MEAN CELL VOLUME 74.8 fl (80-96); MEAN PLT VOLUME 8.8 fl (7.5-11.1); MONO % 8.6 % (3.8-10.2); NEUT % 74.5 % (42.8-82.8); PLATELET COUNT 161 K/MM3 (134-434); RBC 4.92 M/mm3 (4.00-5.60); RDW 14.1 % (11.9-15.9); WHITE BLOOD COUNT 8.2 K/mm3 (4.0-10.0)
[2018-12-18 07:54] LABS: ALBUMIN 3.1 g/dl (3.4-5.0); BILIRUBIN,TOTAL 0.8 mg/dL (0.2-1); BLOOD UREA NITROGEN 7.2 mg/dL (7-18); CALCIUM 8.7 mg/dL (8.5-10.1); CREATININE 0.8 mg/dL (0.55-1.3); POTASSIUM 3.7 mmol/L (3.5-5.1); TOT PROT 6.8 g/dl (6.4-8.2)
[2018-12-18] MEDS ORDERED: cefTRIAXone SODIUM 1 GM VIAL ONE (11:14)
[2018-12-18] MEDS ORDERED: DEXTROSE 5%-WATER - 50 ML IVPB ONE (11:15)
[2018-12-18] MEDS: CEFTRIAXONE 1 GM in DEXTROSE 5%-WATER - 50 ML IVPB SCH (11:20)
--- NOTE | 2018-12-18 11:24 | PN ---
Progress Note, Physician History of Present Illness: PULMONARY ALERT,NO C/O SOB,+ HEMOPTYSIS,R SIDED LATERAL CHEST DISCOMFORT. ECHO NL RV - Current Medication List Current Medications: Active Medications Heparin Sodium (Porcine) (Heparin -) 1,000 unit IVPUSH PRN PRN PRN Reason: Heparin Last Admin: 12/17/18 17:20 Dose: 1,000 unit Heparin Sodium (Porcine) (Heparin -) 5,000 unit IVPUSH PRN PRN PRN Reason: Heparin Last Admin: 12/17/18 09:57 Dose: 5,000 unit Heparin Sodium (Porcine) 25, (000 unit/ Sodium Chloride) 500 mls @ 16 mls/hr IV TITR CORY; Protocol Last Admin: 12/18/18 03:37 Dose: 1,050 unit/hr, 21 mls/hr Ceftriaxone Sodium 1 gm/ (Dextrose) 50 mls @ 100 mls/hr IVPB DAILY CORY Last Admin: 12/17/18 15:47 Dose: 100 mls/hr Sodium Chloride (Normal Saline -) 1,000 mls @ 83 mls/hr IV ASDIR CORY Stop: 12/19/18 03:18 Last Admin: 12/17/18 15:47 Dose: 83 mls/hr - Objective Vital Signs: Vital Signs Temperature 98.9 F 12/18/18 06:00 Pulse Rate 90 12/18/18 06:00 Respiratory Rate 18 12/18/18 06:00 Blood Pressure 117/71 12/18/18 06:00 O2 Sat by Pulse Oximetry (%) 100 12/17/18 23:09 Constitutional: Yes: Calm, Thin Eyes: Yes: WNL HENT: Yes: WNL Neck: Yes: WNL Cardiovascular: Yes: Regular Rate and Rhythm, S1, S2 Respiratory: Yes: Diminished Gastrointestinal: Yes: Normal Bowel Sounds, Soft Extremities: Yes: WNL Edema: No Labs: CBC, BMP 12/18/18 06:23 12/18/18 06:23 INR, PTT INR 1.06 (0.83-1.09) 12/17/18 08:18 Assessment/Plan Problem List - Problems (1) Bilateral pulmonary embolism Code(s): I26.99 - OTHER PULMONARY EMBOLISM WITHOUT ACUTE COR PULMONALE (2) Smoker Code(s): F17.200 - NICOTINE DEPENDENCE, UNSPECIFIED, UNCOMPLICATED (3) Pneumonia Code(s): J18.9 - PNEUMONIA, UNSPECIFIED ORGANISM (4) Pulmonary infarct Code(s): I26.99 - OTHER PULMONARY EMBOLISM WITHOUT ACUTE COR PULMONALE Assessment/Plan AC Will need thrombosis workup O2 as needed Agree with empiric ABX for now to cover for CABP although this appears like infarct due to distribution Incentive Spirometry Will need age appropriate malignancy screening (has had very poor medical follow up) Smoking cessation discussed Outpatient PFTs DR DICK
[2018-12-18 11:32] LABS: SICKLE CELL SCREEN NEGATIVE (NEGATIVE)
--- NOTE | 2018-12-18 17:10 | PN ---
Teaching Attending Note Name of Resident: Roland Tellez ATTENDING PHYSICIAN STATEMENT I saw and evaluated the patient. I reviewed the resident's note and discussed the case with the resident. I agree with the resident's findings and plan as documented. SUBJECTIVE: Patient denies any chest pain or palpitations. OBJECTIVE: Vital Signs Temperature 98.2 F 12/18/18 14:05 Pulse Rate 92 H 12/18/18 14:05 Respiratory Rate 16 12/18/18 14:05 Blood Pressure 131/74 12/18/18 14:05 O2 Sat by Pulse Oximetry (%) 98 12/18/18 09:00 GENERAL: The patient is awake, alert, and fully oriented, in no acute distress. HEAD: Normal with no signs of trauma. EYES: PERRL, extraocular movements intact, sclera anicteric, conjunctiva clear. No ptosis. ENT: Ears normal, nares patent, oropharynx clear without exudates, moist mucous membranes. NECK: Trachea midline, full range of motion, supple. LUNGS: Breath sounds equal, clear to auscultation bilaterally, no wheezes, no crackles, no accessory muscle use. HEART: Regular rate and rhythm, S1, S2 without murmur, rub or gallop. ABDOMEN: Soft, nontender, nondistended, normoactive bowel sounds, no guarding, no rebound, no hepatosplenomegaly, no masses. EXTREMITIES: 2+ pulses, warm, well-perfused, no edema. NEUROLOGICAL: Cranial nerves II through XII grossly intact. Normal speech, gait not observed. PSYCH: Normal mood, normal affect. SKIN: Warm, dry, normal turgor, no rashes or lesions noted CBCD WBC 8.2 K/mm3 (4.0-10.0) 12/18/18 06:23 RBC 4.92 M/mm3 (4.00-5.60) 12/18/18 06:23 Hgb 12.0 GM/dL (11.7-16.9) 12/18/18 06:23 Hct 36.8 % (35.4-49) 12/18/18 06:23 MCV 74.8 fl (80-96) L 12/18/18 06:23 MCHC 32.5 g/dl (32.0-35.9) 12/18/18 06:23 RDW 14.1 % (11.9-15.9) 12/18/18 06:23 Plt Count 161 K/MM3 (134-434) 12/18/18 06:23 MPV 8.8 fl (7.5-11.1) 12/18/18 06:23 CMP Sodium 139 mmol/L (136-145) 12/18/18 06:23 Potassium 3.7 mmol/L (3.5-5.1) 12/18/18 06:23 Chloride 103 mmol/L (98-107) 12/18/18 06:23 Carbon Dioxide 30 mmol/L (21-32) 12/18/18 06:23 Anion Gap 6 MMOL/L (8-16) L 12/18/18 06:23 BUN 7.2 mg/dL (7-18) 12/18/18 06:23 Creatinine 0.8 mg/dL (0.55-1.3) 12/18/18 06:23 Random Glucose 92 mg/dL (74-106) 12/18/18 06:23 Calcium 8.7 mg/dL (8.5-10.1) 12/18/18 06:23 Total Bilirubin 0.8 mg/dL (0.2-1) 12/18/18 06:23 AST 21 U/L (15-37) 12/18/18 06:23 ALT 21 U/L (13-61) 12/18/18 06:23 Alkaline Phosphatase 65 U/L (45-117) 12/18/18 06:23 Total Protein 6.8 g/dl (6.4-8.2) 12/18/18 06:23 Albumin 3.1 g/dl (3.4-5.0) L 12/18/18 06:23 CARDIAC ENZYMES Creatine Kinase 181 U/L (26-308) 12/17/18 02:02 Troponin I < 0.02 ng/ml (0.00-0.05) 12/17/18 02:02 Current Medications Generic Name Dose Route Start Last Admin Trade Name Freq PRN Reason Stop Dose Admin Heparin Sodium (Porcine) 1,000 unit 12/17/18 00:53 12/17/18 17:20 Heparin - IVPUSH 1,000 unit PRN PRN Administration Heparin Heparin Sodium (Porcine) 5,000 unit 12/17/18 00:53 12/17/18 09:57 Heparin - IVPUSH 5,000 unit PRN PRN Administration Heparin Heparin Sodium (Porcine) 25, 500 mls @ 16 mls/hr 12/17/18 01:00 12/18/18 03: 37 000 unit/ Sodium Chloride IV 1,050 unit/hr TITR CORY 21 mls/hr Administration Protocol 800 UNIT/HR Ceftriaxone Sodium 1 gm/ 50 mls @ 100 mls/hr 12/17/18 14:30 12/18/18 11:20 Dextrose IVPB 100 mls/hr DAILY CORY Administration Sodium Chloride 1,000 mls @ 83 mls/hr 12/17/18 15:15 12/17/18 15:47 Normal Saline - IV 12/19/18 03:18 83 mls/hr ASDIR CORY Administration Home Medications Medication Instructions Recorded NK [No Known Home Medication] 12/16/18 ASSESSMENT AND PLAN: Patient is a 48 y/o Male presents to ED with lateral rib pain x 2 days and was found to have bl pulmonary infract on CTA. # Acute B/L PE:on heparin started the pTIENT ON COUMADIN. oncology consult for possible neoplasm. hiv/gc pending, pending SS w/u , pulm. is on the case.
--- NOTE | 2018-12-18 17:33 | PN ---
Physical Exam: SUBJECTIVE: Patient seen and examined at bedside, febrile 103 temp over night subsided with IV tylenol, night sweats, hemoptysis OBJECTIVE: Vital Signs Period Temp Pulse Resp BP Sys/Wilson Pulse Ox Last 24 Hr 98.2 F-103 F 80-92 16-18 115-135/63-88 98-100 GENERAL: The patient is awake, alert, and fully oriented, in no acute distress. Cachectic in appearance, anorexic body habitus. HEAD: swelling on forehead. NECK: supple. LUNGS: Breath sounds equal, pleuritic chest pain, moisture on back from sweat, no crackles but decreased aeration b/l in bases. HEART: Regular rate and rhythm, S1, S2 without murmur, rub or gallop. ABDOMEN: Soft, nontender, nondistended, normoactive bowel sounds, no guarding, no rebound. EXTREMITIES: 2+ pulses, warm, well-perfused, no edema. NEUROLOGICAL: Cranial nerves II through XII grossly intact. Normal speech, gait not observed. PSYCH: Normal mood, normal affect. SKIN: Warm, dry, no rashes or lesions noted Laboratory Results - last 24 hr 12/17/18 12/17/18 12/17/18 02:02 02:02 23:19 WBC RBC Hgb Hct MCV MCH MCHC RDW Plt Count MPV Absolute Neuts (auto) Neutrophils % Lymphocytes % Monocytes % Eosinophils % Basophils % Nucleated RBC % Sickle Cell Screen PTT (Actin FS) 57.0 H Functional Protein S 76 Sodium Potassium Chloride Carbon Dioxide Anion Gap BUN Creatinine Est GFR (CKD-EPI)AfAm Est GFR (CKD-EPI)NonAf Random Glucose Calcium Total Bilirubin AST ALT Alkaline Phosphatase Total Protein Albumin HIV 1&2 Ag/Ab, 4th Gen Non reactive 12/18/18 12/18/18 12/18/18 06:23 06:23 06:23 WBC 8.2 RBC 4.92 Hgb 12.0 Hct 36.8 MCV 74.8 L MCH 24.3 L MCHC 32.5 RDW 14.1 Plt Count 161 MPV 8.8 Absolute Neuts (auto) 6.1 Neutrophils % 74.5 Lymphocytes % 15.8 D Monocytes % 8.6 Eosinophils % 0.3 D Basophils % 0.8 Nucleated RBC % 0 Sickle Cell Screen Negative PTT (Actin FS) 45.3 H Functional Protein S Sodium 139 Potassium 3.7 Chloride 103 Carbon Dioxide 30 Anion Gap 6 L BUN 7.2 Creatinine 0.8 Est GFR (CKD-EPI)AfAm 120.72 Est GFR (CKD-EPI)NonAf 104.16 Random Glucose 92 Calcium 8.7 Total Bilirubin 0.8 AST 21 ALT 21 Alkaline Phosphatase 65 Total Protein 6.8 Albumin 3.1 L HIV 1&2 Ag/Ab, 4th Gen Active Medications Generic Name Dose Route Start Last Admin Trade Name Freq PRN Reason Stop Dose Admin Heparin Sodium (Porcine) 1,000 unit 12/17/18 00:53 12/17/18 17:20 Heparin - IVPUSH 1,000 unit PRN PRN Administration Heparin Heparin Sodium (Porcine) 5,000 unit 12/17/18 00:53 12/17/18 09:57 Heparin - IVPUSH 5,000 unit PRN PRN Administration Heparin Heparin Sodium (Porcine) 25, 500 mls @ 16 mls/hr 12/17/18 01:00 12/18/18 03: 37 000 unit/ Sodium Chloride IV 1,050 unit/hr TITR CORY 21 mls/hr Administration Protocol 800 UNIT/HR Ceftriaxone Sodium 1 gm/ 50 mls @ 100 mls/hr 12/17/18 14:30 12/18/18 11:20 Dextrose IVPB 100 mls/hr DAILY CORY Administration Sodium Chloride 1,000 mls @ 83 mls/hr 12/17/18 15:15 12/17/18 15:47 Normal Saline - IV 12/19/18 03:18 83 mls/hr ASDIR CORY Administration ASSESSMENT/PLAN: 48 y/o M, w a PMH of [facility], presents w/ lateral rib pain of 2 day duration that worsened today morning 2/2 CT confirmed pulmonary infract. #Acute pulmonary embolus 2/2 to possible [place] train ride from [place], pleuritic chest pain - needs further thrombosis w/u. - c/w Heparin gtt plan is to switch to NOAC eventually. As per pulm, O2 as needed. Agrees w rocephin to cover CAP although appears to be infarct due to distribution. - Sputum Cx, stain pending, Continous cardiac monitoring Protein C + S ordered PTT- 45.3 - Malignancy w/u in progress, PSA pending. - Incentive Spirometry #)Night sweats, weight loss, hemoptysis QFN pending HIV testing pending G/C testing pending Anti-nuclear abs + ESR + CRP 4.9 - sickle cell negative. DVT ppx: Heparin drip FEN: Regular diet Dispo: monitor tele Visit type - Emergency Visit Emergency Visit: Yes ED Registration Date: 12/17/18 Care time: The patient presented to the Emergency Department on the above date and was hospitalized for further evaluation of their emergent condition. - New Patient This patient is new to me today: No - Critical Care Critical Care patient: No - Discharge Referral Referred to [facility] Med P.C.: No ATTENDING PHYSICIAN STATEMENT I saw and evaluated the patient. I reviewed the resident's note and discussed the case with the resident. I agree with the resident's findings and plan as documented. SUBJECTIVE: OBJECTIVE: ASSESSMENT AND PLAN:
[2018-12-18] MEDS ORDERED: WARFARIN NA 5 MG TABLET (UD) PO ONE (20:11)
--- NOTE | 2018-12-18 20:39 | CONSULT ---
Consult - text type - Consultation Consultation Note: 48-year-old male denies medical history of presents emergency department for evaluation of right-sided abdominal pain over the past 3 days. Patient reports the pain came on all of a sudden slowly progressed throughout his abdomen. Patient is unable to identify exact location of his pain at this time. Patient is unable to identify any aggravating or alleviating factors. Patient denies any nausea, vomiting, constipation, diarrhea, dysuria or hematuria. 30 pound weight loss over years CTA -- right lower lobe pulmonary embolism /Lt. lower lobe segmental PE/ mildly enlarged rt. hilar nodes Last Vital Signs Temp Pulse Resp BP Pulse Ox 99.3 F 83 18 117/68 98 12/18/18 17:00 12/18/18 17:00 12/18/18 17:00 12/18/18 17:00 12/18/18 09:00 Cor: RSR, No murmurs, No gallops Lungs: Clear to P&A Abd: Soft, Normal bowel sounds, No organomegaly Ext:No significant edema Allergies/Adverse Reactions: Allergies Allergy/AdvReac Type Severity Reaction Status Date / Time No Known Allergies Allergy Verified 12/16/18 18:43 Home Medications: Ambulatory Orders NK [No Known Home Medication] 12/16/18 - Suicide/Smoking/Psychosocial Hx Smoking History: Current every day smoker - Vital Signs Last Vital Signs Temp Pulse Resp BP Pulse Ox 98.4 F 68 16 120/91 97 12/19/18 09:00 12/19/18 09:00 12/19/18 09:00 12/19/18 09:00 12/19/18 09:00 Cor: RSR, No murmurs, No gallops Lungs: Clear to P&A Abd: Soft, Normal bowel sounds, No organomegaly Ext:No significant edema Abnormal Lab Results 12/18/18 12/19/18 12/19/18 21:00 05:15 05:15 Hgb 11.6 L MCV 74.5 L MCH 24.1 L PT with INR 13.60 H INR 1.15 H PTT (Actin FS) 40.1 H 58.5 H Anion Gap BUN Albumin 12/19/18 05:15 Hgb MCV MCH PT with INR INR PTT (Actin FS) Anion Gap 4 L BUN 6.2 L Albumin 2.8 L A/P: 48-year-old male denies medical history of presents emergency department for evaluation of right-sided lower chest/ upperabdominal pain over the past 3 days. Also hemoptysis 30lb wt. loss over yrs which he attributes to working in [employer] 30 pound weight loss over years CTA -- right lower lobe pulmonary embolism /Lt. lower lobe segmental PE/ mildly enlarged rt. hilar nodes CT a/p w/ contrast unrevealing HIV- DANIEL- Reverse AG ratio --check protein studies/bone surevey Cachexia--HIV-/CT scans unrevealing. Will need GI W/u/ iron stiudies/ stool occult Scheck sickle cell screen/RF will follow
[2018-12-18] MEDS: HEPARIN NA (PORCINE) 5,000 UNITS/ML 1ML VIAL IVPUSH PRN (22:59)
[2018-12-19] MEDS: HEPARIN - 25,000 UNIT in SODIUM CHLORIDE 495 ML IV SCH ×2 (04:00→21:40)
[2018-12-19 05:38] LABS: WHITE BLOOD COUNT 6.1 K/mm3 (4.0-10.0)
[2018-12-19 05:47] LABS: HEMATOCRIT 35.9 % (35.4-49); HEMOGLOBIN 11.6 GM/dL (11.7-16.9); MCH 24.1 pg (25.7-33.7); MCHC 32.3 g/dl (32.0-35.9); MEAN CELL VOLUME 74.5 fl (80-96); MEAN PLT VOLUME 8.3 fl (7.5-11.1); PLATELET COUNT 166 K/MM3 (134-434); RBC 4.82 M/mm3 (4.00-5.60); RDW 14.3 % (11.9-15.9)
[2018-12-19 06:07] LABS: ALBUMIN 2.8 g/dl (3.4-5.0); BILIRUBIN,TOTAL 0.4 mg/dL (0.2-1); BLOOD UREA NITROGEN 6.2 mg/dL (7-18); CALCIUM 8.5 mg/dL (8.5-10.1); CREATININE 0.7 mg/dL (0.55-1.3); POTASSIUM 3.6 mmol/L (3.5-5.1); TOT PROT 6.7 g/dl (6.4-8.2)
[2018-12-19 06:09] LABS: INR 1.15 (0.83-1.09); PROTHROMBIN TIME (PATIENT) 13.6 SEC (9.7-13.0)
[2018-12-19 06:12] LABS: ACTIVATED PTT 58.5 SECONDS (25.2-36.5)
[2018-12-19] MEDS ORDERED: DEXTROSE 5%-WATER - 50 ML IVPB ONE (08:48)
[2018-12-19] MEDS ORDERED: cefTRIAXone SODIUM 1 GM VIAL ONE (08:48)
[2018-12-19] MEDS: CEFTRIAXONE 1 GM in DEXTROSE 5%-WATER - 50 ML IVPB SCH (09:08)
--- NOTE | 2018-12-19 11:39 | PN ---
Progress Note, Physician History of Present Illness: pulmonary alert,comfortable,-resp distress,-cp - Current Medication List Current Medications: Active Medications Heparin Sodium (Porcine) (Heparin -) 1,000 unit IVPUSH PRN PRN PRN Reason: Heparin Last Admin: 12/18/18 22:59 Dose: 1,000 unit Heparin Sodium (Porcine) (Heparin -) 5,000 unit IVPUSH PRN PRN PRN Reason: Heparin Last Admin: 12/17/18 09:57 Dose: 5,000 unit Heparin Sodium (Porcine) 25, (000 unit/ Sodium Chloride) 500 mls @ 16 mls/hr IV TITR CORY; Protocol Last Admin: 12/19/18 04:00 Dose: 1,150 unit/hr, 23 mls/hr Ceftriaxone Sodium 1 gm/ (Dextrose) 50 mls @ 100 mls/hr IVPB DAILY CORY Last Admin: 12/19/18 09:08 Dose: 100 mls/hr - Objective Vital Signs: Vital Signs Temperature 98.4 F 12/19/18 09:00 Pulse Rate 68 12/19/18 09:00 Respiratory Rate 16 12/19/18 09:00 Blood Pressure 120/91 12/19/18 09:00 O2 Sat by Pulse Oximetry (%) 97 12/19/18 09:00 Constitutional: Yes: Calm, Thin Eyes: Yes: WNL HENT: Yes: WNL Neck: Yes: WNL Cardiovascular: Yes: Regular Rate and Rhythm, S1, S2 Respiratory: Yes: CTA Bilaterally Gastrointestinal: Yes: Normal Bowel Sounds, Soft Extremities: Yes: WNL Edema: No Labs: CBC, BMP 12/19/18 05:15 12/19/18 05:15 INR, PTT INR 1.15 (0.83-1.09) H 12/19/18 05:15 Assessment/Plan Problem List - Problems (1) Bilateral pulmonary embolism Code(s): I26.99 - OTHER PULMONARY EMBOLISM WITHOUT ACUTE COR PULMONALE (2) Smoker Code(s): F17.200 - NICOTINE DEPENDENCE, UNSPECIFIED, UNCOMPLICATED (3) Pneumonia Code(s): J18.9 - PNEUMONIA, UNSPECIFIED ORGANISM (4) Pulmonary infarct Code(s): I26.99 - OTHER PULMONARY EMBOLISM WITHOUT ACUTE COR PULMONALE Assessment/Plan AC Heparin-coumadin Will need thrombosis workup O2 as needed Agree with empiric ABX for now to cover for CABP although this appears like infarct due to distribution Incentive Spirometry Will need age appropriate malignancy screening (has had very poor medical follow up) Smoking cessation discussed Outpatient PFTs DR DICK
--- NOTE | 2018-12-19 17:01 | PN ---
Physical Exam: SUBJECTIVE: Patient seen and examined at bedside this AM. No acute events overnight. OBJECTIVE: Vital Signs Period Temp Pulse Resp BP Sys/Wlison Pulse Ox Last 24 Hr 98.4 F-99.6 F 68-86 16-18 119-127/64-91 97-98 GENERAL: The patient is awake, alert, and fully oriented, in no acute distress. Very thin body habitus. HEAD: Normal with no signs of trauma. NECK: supple. LUNGS: Breath sounds improved, clear to auscultation bilaterally, no wheezes, no crackles, no accessory muscle use. HEART: Regular rate and rhythm, S1, S2 without murmur, rub or gallop. ABDOMEN: Soft, nontender, nondistended, normoactive bowel sounds, no guarding, no rebound. EXTREMITIES: warm, well-perfused, no edema. NEUROLOGICAL: Cranial nerves II through XII grossly intact. Normal speech, gait not observed. PSYCH: Normal mood, normal affect. SKIN: Warm, dry, no rashes or lesions noted Laboratory Results - last 24 hr 12/17/18 12/17/18 12/18/18 02:02 06:39 06:23 WBC RBC Hgb Hct MCV MCH MCHC RDW Plt Count MPV PT with INR INR PTT (Actin FS) Sodium Potassium Chloride Carbon Dioxide Anion Gap BUN Creatinine Est GFR (CKD-EPI)AfAm Est GFR (CKD-EPI)NonAf Random Glucose Calcium Total Bilirubin AST ALT Alkaline Phosphatase Total Protein Albumin Prostate Specific Ag 0.40 DANIEL Screen Negative C. trachomatis (AMA) Negative N. gonorrhoeae (AMA) Negative 12/18/18 12/19/18 12/19/18 21:00 05:15 05:15 WBC 6.1 RBC 4.82 Hgb 11.6 L Hct 35.9 MCV 74.5 L MCH 24.1 L MCHC 32.3 RDW 14.3 Plt Count 166 MPV 8.3 PT with INR 13.60 H INR 1.15 H PTT (Actin FS) 40.1 H 58.5 H Sodium Potassium Chloride Carbon Dioxide Anion Gap BUN Creatinine Est GFR (CKD-EPI)AfAm Est GFR (CKD-EPI)NonAf Random Glucose Calcium Total Bilirubin AST ALT Alkaline Phosphatase Total Protein Albumin Prostate Specific Ag DANIEL Screen C. trachomatis (AMA) N. gonorrhoeae (AMA) 12/19/18 12/19/18 05:15 05:15 WBC RBC Hgb Hct MCV MCH MCHC RDW Plt Count MPV PT with INR Cancelled INR Cancelled PTT (Actin FS) Sodium 140 Potassium 3.6 Chloride 106 Carbon Dioxide 30 Anion Gap 4 L BUN 6.2 L Creatinine 0.7 Est GFR (CKD-EPI)AfAm 127.53 Est GFR (CKD-EPI)NonAf 110.04 Random Glucose 94 Calcium 8.5 Total Bilirubin 0.4 AST 28 ALT 27 Alkaline Phosphatase 65 Total Protein 6.7 Albumin 2.8 L Prostate Specific Ag DANIEL Screen C. trachomatis (AMA) N. gonorrhoeae (AMA) Active Medications Generic Name Dose Route Start Last Admin Trade Name Freq PRN Reason Stop Dose Admin Heparin Sodium (Porcine) 1,000 unit 12/17/18 00:53 12/18/18 22:59 Heparin - IVPUSH 1,000 unit PRN PRN Administration Heparin Heparin Sodium (Porcine) 5,000 unit 12/17/18 00:53 12/17/18 09:57 Heparin - IVPUSH 5,000 unit PRN PRN Administration Heparin Heparin Sodium (Porcine) 25, 500 mls @ 16 mls/hr 12/17/18 01:00 12/19/18 04: 00 000 unit/ Sodium Chloride IV 1,150 unit/hr TITR CORY 23 mls/hr Administration Protocol 800 UNIT/HR Ceftriaxone Sodium 1 gm/ 50 mls @ 100 mls/hr 12/17/18 14:30 12/19/18 09:08 Dextrose IVPB 100 mls/hr DAILY CORY Administration ASSESSMENT/PLAN: 48 y/o M, w a PMH of gonnorhea, presents w/ lateral rib pain of 2 day duration that worsened today morning 2/2 CT confirmed pulmonary infract. #Acute pulmonary embolus - needs further thrombosis w/u. - c/w Heparin and coumadine bridge - As per pulm, O2 as needed. - Sputum Cx, stain pending, - Malignancy w/u in progress, PSA pending. - Incentive Spirometry - as per ID- no need to continue Abx #Night sweats, weight loss, hemoptysis QFN pending HIV testing pending G/C testing pending - sickle cell negative. DVT ppx: Heparin drip FEN: Regular diet Dispo: transferred to med surg Visit type - Emergency Visit Emergency Visit: Yes ED Registration Date: 12/17/18 Care time: The patient presented to the Emergency Department on the above date and was hospitalized for further evaluation of their emergent condition. - New Patient This patient is new to me today: No - Critical Care Critical Care patient: No - Discharge Referral Referred to [facility] Med P.C.: No ATTENDING PHYSICIAN STATEMENT I saw and evaluated the patient. I reviewed the resident's note and discussed the case with the resident. I agree with the resident's findings and plan as documented. SUBJECTIVE: OBJECTIVE: ASSESSMENT AND PLAN:
[2018-12-19] MEDS ORDERED: HEPARIN NA (PORCINE) 5,000 UNITS/ML 1ML VIAL IVPUSH PRN ×4 (18:56)
[2018-12-19] MEDS ORDERED: WARFARIN NA 7.5 MG TABLET (FP) PO ONE (18:57)
--- NOTE | 2018-12-19 19:39 | PN ---
Teaching Attending Note Name of Resident: Roland Tellez ATTENDING PHYSICIAN STATEMENT I saw and evaluated the patient. I reviewed the resident's note and discussed the case with the resident. I agree with the resident's findings and plan as documented. SUBJECTIVE: pATIENT IS feeling better , no shortness of breath. OBJECTIVE: Vital Signs Temperature 98.5 F 12/19/18 15:41 Pulse Rate 74 12/19/18 13:00 Respiratory Rate 16 12/19/18 13:00 Blood Pressure 119/78 12/19/18 13:00 O2 Sat by Pulse Oximetry (%) 97 12/19/18 09:00 GENERAL: The patient is awake, alert, and fully oriented, in no acute distress. HEAD: Normal with no signs of trauma. EYES: PERRL, extraocular movements intact, sclera anicteric, conjunctiva clear. No ptosis. ENT: Ears normal, nares patent, oropharynx clear without exudates, moist mucous membranes. NECK: Trachea midline, full range of motion, supple. LUNGS: Breath sounds equal, clear to auscultation bilaterally, no wheezes, no crackles, no accessory muscle use. HEART: Regular rate and rhythm, S1, S2 without murmur, rub or gallop. ABDOMEN: Soft, nontender, nondistended, normoactive bowel sounds, no guarding, no rebound, no hepatosplenomegaly, no masses. EXTREMITIES: 2+ pulses, warm, well-perfused, no edema. NEUROLOGICAL: Cranial nerves II through XII grossly intact. Normal speech, gait not observed. PSYCH: Normal mood, normal affect. SKIN: Warm, dry, normal turgor, no rashes or lesions noted CBCD WBC 6.1 K/mm3 (4.0-10.0) 12/19/18 05:15 RBC 4.82 M/mm3 (4.00-5.60) 12/19/18 05:15 Hgb 11.6 GM/dL (11.7-16.9) L 12/19/18 05:15 Hct 35.9 % (35.4-49) 12/19/18 05:15 MCV 74.5 fl (80-96) L 12/19/18 05:15 MCHC 32.3 g/dl (32.0-35.9) 12/19/18 05:15 RDW 14.3 % (11.9-15.9) 12/19/18 05:15 Plt Count 166 K/MM3 (134-434) 12/19/18 05:15 MPV 8.3 fl (7.5-11.1) 12/19/18 05:15 CMP Sodium 140 mmol/L (136-145) 12/19/18 05:15 Potassium 3.6 mmol/L (3.5-5.1) 12/19/18 05:15 Chloride 106 mmol/L (98-107) 12/19/18 05:15 Carbon Dioxide 30 mmol/L (21-32) 12/19/18 05:15 Anion Gap 4 MMOL/L (8-16) L 12/19/18 05:15 BUN 6.2 mg/dL (7-18) L 12/19/18 05:15 Creatinine 0.7 mg/dL (0.55-1.3) 12/19/18 05:15 Random Glucose 94 mg/dL (74-106) 12/19/18 05:15 Calcium 8.5 mg/dL (8.5-10.1) 12/19/18 05:15 Total Bilirubin 0.4 mg/dL (0.2-1) 12/19/18 05:15 AST 28 U/L (15-37) 12/19/18 05:15 ALT 27 U/L (13-61) 12/19/18 05:15 Alkaline Phosphatase 65 U/L (45-117) 12/19/18 05:15 Total Protein 6.7 g/dl (6.4-8.2) 12/19/18 05:15 Albumin 2.8 g/dl (3.4-5.0) L 12/19/18 05:15 CARDIAC ENZYMES Creatine Kinase 181 U/L (26-308) 12/17/18 02:02 Troponin I < 0.02 ng/ml (0.00-0.05) 12/17/18 02:02 Current Medications Generic Name Dose Route Start Last Admin Trade Name Freq PRN Reason Stop Dose Admin Heparin Sodium (Porcine) 1,000 unit 12/19/18 18:56 Heparin - IVPUSH PRN PRN Heparin Heparin Sodium (Porcine) 5,000 unit 12/19/18 18:56 Heparin - IVPUSH PRN PRN Heparin Ceftriaxone Sodium 1 gm/ 50 mls @ 100 mls/hr 08/16/19 10:00 Dextrose IVPB DAILY [facility] Heparin Sodium (Porcine) 25, 500 mls @ 16 mls/hr 12/19/18 18:56 000 unit/ Sodium Chloride IV TITR CORY Protocol 800 UNIT/HR Home Medications Medication Instructions Recorded NK [No Known Home Medication] 12/16/18 Microbiology 12/17/18 16:07 Sputum - Expectorated Gram Stain - Final 12/17/18 16:07 Sputum - Expectorated Sputum Culture - Preliminary NORMAL RESPIRATORY CHARLEY 12/17/18 21:45 Blood - Peripheral Venous Blood Culture - Preliminary NO GROWTH OBTAINED AFTER 24 HOURS, INCUBATION TO CONTINUE FOR 4 DAYS. 12/17/18 21:30 Blood - Peripheral Venous Blood Culture - Preliminary NO GROWTH OBTAINED AFTER 24 HOURS, INCUBATION TO CONTINUE FOR 4 DAYS. ASSESSMENT AND PLAN: Patient is a 48 y/o Male presents to ED with lateral rib pain x 2 days and was found to have bl pulmonary infract on CTA. # Acute B/L PE:on heparin started the pTIENT ON COUMADIN. oncology consult for possible neoplasm. incentive spirometer, pt/inr coumadin 7.5mg tonight. # Possible Pneumonia On IV Rocephin continue for now hiv/gc pending, SS is negative , pulm. is on the case. DVT Px: heparin
[2018-12-20 08:17] LABS: BASO % 1.5 % (0-2.0); EOS % 2.8 % (0-4.5); HEMATOCRIT 35.2 % (35.4-49); HEMOGLOBIN 11.3 GM/dL (11.7-16.9); LYMPH % 24.8 % (8-40); MCHC 32.1 g/dl (32.0-35.9); MEAN CELL VOLUME 74.9 fl (80-96); MEAN PLT VOLUME 8.9 fl (7.5-11.1); NEUT % 63.9 % (42.8-82.8); PLATELET COUNT 202 K/MM3 (134-434); RDW 13.9 % (11.9-15.9); WHITE BLOOD COUNT 4.7 K/mm3 (4.0-10.0)
[2018-12-20 08:32] LABS: INR 0.97 (0.83-1.09); PROTHROMBIN TIME (PATIENT) 11.5 SEC (9.7-13.0)
[2018-12-20] MEDS ORDERED: cefTRIAXone SODIUM 1 GM VIAL ONE (09:34)
[2018-12-20] MEDS ORDERED: DEXTROSE 5%-WATER - 50 ML IVPB ONE (09:34)
[2018-12-20] MEDS ORDERED: CEFTRIAXONE 1 GM in DEXTROSE 5%-WATER - 50 ML IVPB SCH (10:00)
--- NOTE | 2018-12-20 14:25 | PN ---
Teaching Attending Note Name of Resident: Roland Tellez ATTENDING PHYSICIAN STATEMENT I saw and evaluated the patient. I reviewed the resident's note and discussed the case with the resident. I agree with the resident's findings and plan as documented. SUBJECTIVE: Patient is feeling better with no acute distress. OBJECTIVE: Vital Signs Temperature 97.8 F 12/20/18 07:43 Pulse Rate 64 12/20/18 07:43 Respiratory Rate 14 12/20/18 07:43 Blood Pressure 136/90 12/20/18 07:43 O2 Sat by Pulse Oximetry (%) 98 12/20/18 09:00 GENERAL: The patient is awake, alert, and fully oriented, in no acute distress. HEAD: Normal with no signs of trauma. EYES: PERRL, extraocular movements intact, sclera anicteric, conjunctiva clear. No ptosis. ENT: Ears normal, nares patent, oropharynx clear without exudates, moist mucous membranes. NECK: Trachea midline, full range of motion, supple. LUNGS: Breath sounds equal, clear to auscultation bilaterally, no wheezes, no crackles, no accessory muscle use. HEART: Regular rate and rhythm, S1, S2 without murmur, rub or gallop. ABDOMEN: Soft, nontender, nondistended, normoactive bowel sounds, no guarding, no rebound, no hepatosplenomegaly, no masses. EXTREMITIES: 2+ pulses, warm, well-perfused, no edema. NEUROLOGICAL: Cranial nerves II through XII grossly intact. Normal speech, gait not observed. PSYCH: Normal mood, normal affect. SKIN: Warm, dry, normal turgor, no rashes or lesions noted CBCD WBC 4.7 K/mm3 (4.0-10.0) 12/20/18 07:00 RBC 4.70 M/mm3 (4.00-5.60) 12/20/18 07:00 Hgb 11.3 GM/dL (11.7-16.9) L 12/20/18 07:00 Hct 35.2 % (35.4-49) L 12/20/18 07:00 MCV 74.9 fl (80-96) L 12/20/18 07:00 MCHC 32.1 g/dl (32.0-35.9) 12/20/18 07:00 RDW 13.9 % (11.9-15.9) 12/20/18 07:00 Plt Count 202 K/MM3 (134-434) D 12/20/18 07:00 MPV 8.9 fl (7.5-11.1) 12/20/18 07:00 CMP Sodium 140 mmol/L (136-145) 12/19/18 05:15 Potassium 3.6 mmol/L (3.5-5.1) 12/19/18 05:15 Chloride 106 mmol/L (98-107) 12/19/18 05:15 Carbon Dioxide 30 mmol/L (21-32) 12/19/18 05:15 Anion Gap 4 MMOL/L (8-16) L 12/19/18 05:15 BUN 6.2 mg/dL (7-18) L 12/19/18 05:15 Creatinine 0.7 mg/dL (0.55-1.3) 12/19/18 05:15 Random Glucose 94 mg/dL (74-106) 12/19/18 05:15 Calcium 8.5 mg/dL (8.5-10.1) 12/19/18 05:15 Total Bilirubin 0.4 mg/dL (0.2-1) 12/19/18 05:15 AST 28 U/L (15-37) 12/19/18 05:15 ALT 27 U/L (13-61) 12/19/18 05:15 Alkaline Phosphatase 65 U/L (45-117) 12/19/18 05:15 Total Protein 6.7 g/dl (6.4-8.2) 12/19/18 05:15 Albumin 2.8 g/dl (3.4-5.0) L 12/19/18 05:15 CARDIAC ENZYMES Creatine Kinase 181 U/L (26-308) 12/17/18 02:02 Troponin I < 0.02 ng/ml (0.00-0.05) 12/17/18 02:02 Current Medications Generic Name Dose Route Start Last Admin Trade Name Freq PRN Reason Stop Dose Admin Heparin Sodium (Porcine) 1,000 unit 12/19/18 18:56 Heparin - IVPUSH PRN PRN Heparin Heparin Sodium (Porcine) 5,000 unit 12/19/18 18:56 12/20/18 11:07 Heparin - IVPUSH 5,000 unit PRN PRN Administration Heparin Ceftriaxone Sodium 1 gm/ 50 mls @ 100 mls/hr 12/20/18 10:00 12/20/18 09:45 Dextrose IVPB 100 mls/hr DAILY CORY Administration Heparin Sodium (Porcine) 25, 500 mls @ 16 mls/hr 12/19/18 18:56 12/20/18 11: 08 000 unit/ Sodium Chloride IV 950 unit/hr TITR CORY 19 mls/hr Titration Protocol 800 UNIT/HR Home Medications Medication Instructions Recorded NK [No Known Home Medication] 12/16/18 ASSESSMENT AND PLAN: Patient is a 48 y/o Male presents to ED with lateral rib pain x 2 days and was found to have bl pulmonary infract on CTA. # Acute B/L PE:on heparin started the pTIENT ON COUMADIN. oncology consult appreciated , incentive spirometer, pt/inr coumadin 10mg tonight. CT scan of abdomen and pelvis and chest : no obvious neoplasm, patient drinks alcohol (Renata) on a daily basis , smokes 1/2 ppd cut down from 2ppd. Protein studies pending. Bridge heparin - -->coumadin or NOAC. as per hem/onc. # Possible Pneumonia On IV Rocephin continue for now hiv/gc pending, SS is negative , pulm. is on the case. DVT Px: heparin
--- NOTE | 2018-12-20 14:39 | PN ---
Progress Note (short form) - Note Progress Note: OOB to chair on RA. No CP or SOB. No hemoptysis. (+) LBM Intake & Output 12/17/18 12/18/18 12/19/18 12/20/18 23:59 23:59 23:59 23:59 Intake Total 100 1751 1400 720 Output Total 600 2500 500 700 Balance -500 -749 900 20 Weight 128 lb 128 lb Last Vital Signs Temp Pulse Resp BP Pulse Ox 97.8 F 64 14 136/90 98 12/20/18 07:43 12/20/18 07:43 12/20/18 07:43 12/20/18 07:43 12/20/18 09:00 Active Medications Heparin Sodium (Porcine) (Heparin -) 1,000 unit IVPUSH PRN PRN PRN Reason: Heparin Heparin Sodium (Porcine) (Heparin -) 5,000 unit IVPUSH PRN PRN PRN Reason: Heparin Last Admin: 12/20/18 11:07 Dose: 5,000 unit Ceftriaxone Sodium 1 gm/ (Dextrose) 50 mls @ 100 mls/hr IVPB DAILY CORY Last Admin: 12/20/18 09:45 Dose: 100 mls/hr Heparin Sodium (Porcine) 25, (000 unit/ Sodium Chloride) 500 mls @ 16 mls/hr IV TITR CORY; Protocol Last Titration: 12/20/18 11:08 Dose: 950 unit/hr, 19 mls/hr Constitutional: Yes: Calm, Thin Eyes: Yes: WNL HENT: Yes: WNL Neck: Yes: WNL Cardiovascular: Yes: Regular Rate and Rhythm, S1, S2 Respiratory: Yes: CTA Bilaterally Gastrointestinal: Yes: Normal Bowel Sounds, Soft Extremities: Yes: WNL Edema: No Labs: Laboratory Results - last 24 hr 12/19/18 12/20/18 12/20/18 05:15 07:00 07:00 WBC 4.7 RBC 4.70 Hgb 11.3 L Hct 35.2 L MCV 74.9 L MCH 24.0 L MCHC 32.1 RDW 13.9 Plt Count 202 D MPV 8.9 Absolute Neuts (auto) 3.0 Neutrophils % 63.9 Lymphocytes % 24.8 D Monocytes % 7.0 Eosinophils % 2.8 D Basophils % 1.5 Nucleated RBC % 0 Sickle Cell Screen PT with INR INR PTT (Actin FS) 35.0 Iron TIBC Iron Saturation Unsaturated IBC Ferritin LD Total HIV 1&2 Ag/Ab, 4th Gen Non reactive 12/20/18 12/20/18 12/20/18 07:00 07:00 07:00 WBC RBC Hgb Hct MCV MCH MCHC RDW Plt Count MPV Absolute Neuts (auto) Neutrophils % Lymphocytes % Monocytes % Eosinophils % Basophils % Nucleated RBC % Sickle Cell Screen Negative PT with INR 11.50 INR 0.97 PTT (Actin FS) Iron 56 TIBC 208 L Iron Saturation 26 Unsaturated IBC 152 L Ferritin 169.6 LD Total 134 HIV 1&2 Ag/Ab, 4th Gen Assessment/Plan Problem List - Problems (1) Bilateral pulmonary embolism Code(s): I26.99 - OTHER PULMONARY EMBOLISM WITHOUT ACUTE COR PULMONALE (2) Smoker Code(s): F17.200 - NICOTINE DEPENDENCE, UNSPECIFIED, UNCOMPLICATED (3) Pneumonia Code(s): J18.9 - PNEUMONIA, UNSPECIFIED ORGANISM (4) Pulmonary infarct Code(s): I26.99 - OTHER PULMONARY EMBOLISM WITHOUT ACUTE COR PULMONALE Assessment/Plan AC Heparin-coumadin Thrombosis workup O2 as needed D/C and monitor off ABX Pro-biotic Incentive Spirometry Age appropriate malignancy screening (has had very poor medical follow up) Smoking cessation discussed Outpatient PFTs Dr Ding Problem List - Problems (1) Bilateral pulmonary embolism Code(s): I26.99 - OTHER PULMONARY EMBOLISM WITHOUT ACUTE COR PULMONALE (2) Smoker Code(s): F17.200 - NICOTINE DEPENDENCE, UNSPECIFIED, UNCOMPLICATED (3) Pneumonia Code(s): J18.9 - PNEUMONIA, UNSPECIFIED ORGANISM (4) Pulmonary infarct Code(s): I26.99 - OTHER PULMONARY EMBOLISM WITHOUT ACUTE COR PULMONALE
[2018-12-20] MEDS: LACTOBACILLUS ACIDOPHILUS 1 TABLET PO SCH (15:26)
--- NOTE | 2018-12-20 16:45 | PN ---
Physical Exam: SUBJECTIVE: Patient seen and examined at bedside this AM. No acute events. OBJECTIVE: Vital Signs Period Temp Pulse Resp BP Sys/Wilson Pulse Ox Last 24 Hr 97.8 F-98.7 F 64-72 14-20 125-136/70-90 98 GENERAL: The patient is awake, alert, and fully oriented, in no acute distress. Very thin body habitus. HEAD: Normal with no signs of trauma. NECK: supple. LUNGS: Breath sounds equal, clear to auscultation bilaterally, no wheezes, no crackles, no accessory muscle use. HEART: Regular rate and rhythm, S1, S2 without murmur, rub or gallop. ABDOMEN: Soft, nontender, nondistended, no guarding, no rebound. EXTREMITIES: 2+ pulses, warm, well-perfused, no edema. NEUROLOGICAL: Cranial nerves II through XII grossly intact. Normal speech, gait not observed. PSYCH: Normal mood, normal affect. SKIN: Warm, dry, no rashes or lesions noted Laboratory Results - last 24 hr 12/19/18 12/20/18 12/20/18 05:15 07:00 07:00 WBC 4.7 RBC 4.70 Hgb 11.3 L Hct 35.2 L MCV 74.9 L MCH 24.0 L MCHC 32.1 RDW 13.9 Plt Count 202 D MPV 8.9 Absolute Neuts (auto) 3.0 Neutrophils % 63.9 Lymphocytes % 24.8 D Monocytes % 7.0 Eosinophils % 2.8 D Basophils % 1.5 Nucleated RBC % 0 Sickle Cell Screen PT with INR INR PTT (Actin FS) 35.0 Iron TIBC Iron Saturation Unsaturated IBC Ferritin LD Total HIV 1&2 Ag/Ab, 4th Gen Non reactive 12/20/18 12/20/18 12/20/18 07:00 07:00 07:00 WBC RBC Hgb Hct MCV MCH MCHC RDW Plt Count MPV Absolute Neuts (auto) Neutrophils % Lymphocytes % Monocytes % Eosinophils % Basophils % Nucleated RBC % Sickle Cell Screen Negative PT with INR 11.50 INR 0.97 PTT (Actin FS) Iron 56 TIBC 208 L Iron Saturation 26 Unsaturated IBC 152 L Ferritin 169.6 LD Total 134 HIV 1&2 Ag/Ab, 4th Gen Active Medications Generic Name Dose Route Start Last Admin Trade Name Freq PRN Reason Stop Dose Admin Heparin Sodium (Porcine) 1,000 unit 12/19/18 18:56 Heparin - IVPUSH PRN PRN Heparin Heparin Sodium (Porcine) 5,000 unit 12/19/18 18:56 12/20/18 11:07 Heparin - IVPUSH 5,000 unit PRN PRN Administration Heparin Heparin Sodium (Porcine) 25, 500 mls @ 16 mls/hr 12/19/18 18:56 12/20/18 11: 08 000 unit/ Sodium Chloride IV 950 unit/hr TITR CORY 19 mls/hr Titration Protocol 800 UNIT/HR Lactobacillus Acidophilus 1 tab 12/20/18 14:45 12/20/18 15:26 Bacid - PO 1 tab DAILY CORY Administration ASSESSMENT/PLAN: 48 y/o M, w a PMH of gonnorhea, presents w/ lateral rib pain of 2 day duration that worsened today morning 2/ CT confirmed pulmonary infract. #Acute pulmonary embolus - needs further thrombosis w/u. - c/w Heparin and coumadin bridge - probiotic - As per pulm, o/p PFT's. - Malignancy w/u in progress, awaiting heme recs. - Incentive Spirometry - as per ID- no need to continue Abx #Night sweats, weight loss, hemoptysis QFN pending HIV testing pending G/C testing pending - sickle cell negative. DVT ppx: Heparin drip FEN: Regular diet Dispo: continue monitoring on med surg Visit type - Emergency Visit Emergency Visit: Yes ED Registration Date: 12/17/18 Care time: The patient presented to the Emergency Department on the above date and was hospitalized for further evaluation of their emergent condition. - New Patient This patient is new to me today: No - Critical Care Critical Care patient: No - Discharge Referral Referred to [facility] Med P.C.: No ATTENDING PHYSICIAN STATEMENT I saw and evaluated the patient. I reviewed the resident's note and discussed the case with the resident. I agree with the resident's findings and plan as documented. SUBJECTIVE: OBJECTIVE: ASSESSMENT AND PLAN:
[2018-12-20] MEDS ORDERED: WARFARIN NA 5 MG TABLET (UD) PO ONE (18:00)
--- NOTE | 2018-12-20 18:05 | PN ---
Progress Note (short form) - Note Progress Note: Patient seen and examined Breathing easier Denies chest, abdominal complaints or SOB Last Vital Signs Temp Pulse Resp BP Pulse Ox 97.8 F 64 14 136/90 98 12/20/18 07:43 12/20/18 07:43 12/20/18 07:43 12/20/18 07:43 12/20/18 09:00 HEENT: [place], EOM Intact Cor: RSR, No murmurs, No gallops Lungs: decreased Breath sounds RLL Abd: Soft, Normal bowel sounds, No organomegaly Ext:No significant edema Skin: No rashes, Integument intact CBC, BMP 12/20/18 07:00 12/19/18 05:15 Current Medications Generic Name Dose Route Start Last Admin Trade Name Freq PRN Reason Stop Dose Admin Heparin Sodium (Porcine) 1,000 unit 12/19/18 18:56 Heparin - IVPUSH PRN PRN Heparin Heparin Sodium (Porcine) 5,000 unit 12/19/18 18:56 12/20/18 11:07 Heparin - IVPUSH 5,000 unit PRN PRN Administration Heparin Heparin Sodium (Porcine) 25, 500 mls @ 16 mls/hr 12/19/18 18:56 12/20/18 11: 08 000 unit/ Sodium Chloride IV 950 unit/hr TITR CORY 19 mls/hr Titration Protocol 800 UNIT/HR Lactobacillus Acidophilus 1 tab 12/20/18 14:45 12/20/18 15:26 Bacid - PO 1 tab DAILY CORY Administration Impression: Pulmonary embolus Cachexia Hypochroma/microcytosis Smoking history - 1/2 ppd currently- previously 2 ppd ETOH - currently --1/2 bottle per day ( anything I can get my hands on ) Fe++ studies compatible with chronic disease anemia 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
[2018-12-21] MEDS: HEPARIN - 25,000 UNIT in SODIUM CHLORIDE 495 ML IV SCH ×2 (05:01→19:05)
[2018-12-21 07:29] LABS: HEMATOCRIT 36.2 % (35.4-49); HEMOGLOBIN 11.6 GM/dL (11.7-16.9); MCH 23.9 pg (25.7-33.7); MCHC 31.9 g/dl (32.0-35.9); MEAN CELL VOLUME 74.8 fl (80-96); MEAN PLT VOLUME 8.4 fl (7.5-11.1); PLATELET COUNT 235 K/MM3 (134-434); RBC 4.84 M/mm3 (4.00-5.60); WHITE BLOOD COUNT 4.3 K/mm3 (4.0-10.0)
[2018-12-21 07:39] LABS: INR 1.34 (0.83-1.09); PROTHROMBIN TIME (PATIENT) 15.8 SEC (9.7-13.0)
[2018-12-21] MEDS: LACTOBACILLUS ACIDOPHILUS 1 TABLET PO SCH (10:31)
[2018-12-21 17:06] LABS: FREE KAPPA,SERUM 28.6 mg/L (3.3-19.4)
[2018-12-21] MEDS ORDERED: WARFARIN NA 5 MG TABLET (UD) PO ONE (18:02)
--- NOTE | 2018-12-21 18:14 | PN ---
Progress Note (short form) - Note Progress Note: Patient is feeling better with no acute distress. Vital Signs Temperature 98.4 F 12/21/18 14:00 Pulse Rate 62 12/21/18 14:00 Respiratory Rate 18 12/21/18 14:00 Blood Pressure 120/67 12/21/18 14:00 O2 Sat by Pulse Oximetry (%) 99 12/21/18 09:00 GENERAL: The patient is awake, alert, and fully oriented, in no acute distress. HEAD: Normal with no signs of trauma. EYES: PERRL, extraocular movements intact, sclera anicteric, conjunctiva clear. No ptosis. ENT: Ears normal, nares patent, oropharynx clear without exudates, moist mucous membranes. NECK: Trachea midline, full range of motion, supple. LUNGS: Breath sounds equal, clear to auscultation bilaterally, no wheezes, no crackles, no accessory muscle use. HEART: Regular rate and rhythm, S1, S2 without murmur, rub or gallop. ABDOMEN: Soft, nontender, nondistended, normoactive bowel sounds, no guarding, no rebound, no hepatosplenomegaly, no masses. EXTREMITIES: 2+ pulses, warm, well-perfused, no edema. NEUROLOGICAL: Cranial nerves II through XII grossly intact. Normal speech, gait not observed. PSYCH: Normal mood, normal affect. SKIN: Warm, dry, normal turgor, no rashes or lesions noted CBCD WBC 4.3 K/mm3 (4.0-10.0) 12/21/18 06:54 RBC 4.84 M/mm3 (4.00-5.60) 12/21/18 06:54 Hgb 11.6 GM/dL (11.7-16.9) L 12/21/18 06:54 Hct 36.2 % (35.4-49) 12/21/18 06:54 MCV 74.8 fl (80-96) L 12/21/18 06:54 MCHC 31.9 g/dl (32.0-35.9) L 12/21/18 06:54 RDW 14.0 % (11.9-15.9) 12/21/18 06:54 Plt Count 235 K/MM3 (134-434) 12/21/18 06:54 MPV 8.4 fl (7.5-11.1) 12/21/18 06:54 CMP Sodium 140 mmol/L (136-145) 12/19/18 05:15 Potassium 3.6 mmol/L (3.5-5.1) 12/19/18 05:15 Chloride 106 mmol/L (98-107) 12/19/18 05:15 Carbon Dioxide 30 mmol/L (21-32) 12/19/18 05:15 Anion Gap 4 MMOL/L (8-16) L 12/19/18 05:15 BUN 6.2 mg/dL (7-18) L 12/19/18 05:15 Creatinine 0.7 mg/dL (0.55-1.3) 12/19/18 05:15 Random Glucose 94 mg/dL (74-106) 12/19/18 05:15 Calcium 8.5 mg/dL (8.5-10.1) 12/19/18 05:15 Total Bilirubin 0.4 mg/dL (0.2-1) 12/19/18 05:15 AST 28 U/L (15-37) 12/19/18 05:15 ALT 27 U/L (13-61) 12/19/18 05:15 Alkaline Phosphatase 65 U/L (45-117) 12/19/18 05:15 Total Protein 6.7 g/dl (6.4-8.2) 12/19/18 05:15 Albumin 2.8 g/dl (3.4-5.0) L 12/19/18 05:15 CARDIAC ENZYMES Creatine Kinase 181 U/L (26-308) 12/17/18 02:02 Troponin I < 0.02 ng/ml (0.00-0.05) 12/17/18 02:02 Current Medications Generic Name Dose Route Start Last Admin Trade Name Freq PRN Reason Stop Dose Admin Heparin Sodium (Porcine) 1,000 unit 12/19/18 18:56 Heparin - IVPUSH PRN PRN Heparin Heparin Sodium (Porcine) 5,000 unit 12/19/18 18:56 12/20/18 11:07 Heparin - IVPUSH 5,000 unit PRN PRN Administration Heparin Heparin Sodium (Porcine) 25, 500 mls @ 16 mls/hr 12/19/18 18:56 12/21/18 05: 01 000 unit/ Sodium Chloride IV 950 unit/hr TITR CORY 19 mls/hr Administration Protocol 800 UNIT/HR Lactobacillus Acidophilus 1 tab 12/20/18 14:45 12/21/18 10:31 Bacid - PO 1 tab DAILY CORY Administration Home Medications Medication Instructions Recorded NK [No Known Home Medication] 12/16/18 ASSESSMENT AND PLAN: Patient is a 48 y/o Male presents to ED with lateral rib pain x 2 days and was found to have bl pulmonary infract on CTA. # Acute B/L PE:on heparin started the pTIENT ON COUMADIN 10mg tonight , daily PT /INR , oncology consult appreciated , incentive spirometer, CT scan of abdomen and pelvis and chest : no obvious neoplasm, patient drinks alcohol (Renata) on a daily basis , smokes 1/2 ppd cut down from 2ppd. Protein studies pending. Bridge heparin - -->coumadin or NOAC. as per hem/onc. Patient was suggested that he cannot continue drinking alcohol while on a blood thiiner for at least 9 months. # Possible Pneumonia On IV Rocephin continue # hiv is negative, /gc pending, SS is negative , pulm. is on the case. DVT Px: heparin metastatic series is pending Visit type - Emergency Visit Emergency Visit: Yes ED Registration Date: 12/17/18 Care time: The patient presented to the Emergency Department on the above date and was hospitalized for further evaluation of their emergent condition. - New Patient This patient is new to me today: No - Critical Care Critical Care patient: No - Discharge Referral Referred to [facility] Med P.C.: No
[2018-12-22 07:54] LABS: HEMATOCRIT 38.3 % (35.4-49); HEMOGLOBIN 12.1 GM/dL (11.7-16.9); MCH 23.7 pg (25.7-33.7); MCHC 31.7 g/dl (32.0-35.9); MEAN CELL VOLUME 74.7 fl (80-96); MEAN PLT VOLUME 8.5 fl (7.5-11.1); PLATELET COUNT 266 K/MM3 (134-434); RBC 5.13 M/mm3 (4.00-5.60); RDW 14.1 % (11.9-15.9); WHITE BLOOD COUNT 4.3 K/mm3 (4.0-10.0)
[2018-12-22 08:01] LABS: INR 1.4 (0.83-1.09); PROTHROMBIN TIME (PATIENT) 16.6 SEC (9.7-13.0)
[2018-12-22 08:03] LABS: ACTIVATED PTT 58.5 SECONDS (25.2-36.5)
[2018-12-22] MEDS: LACTOBACILLUS ACIDOPHILUS 1 TABLET PO SCH (10:06)
--- NOTE | 2018-12-22 10:55 | PN ---
Physical Exam: SUBJECTIVE: Patient seen and examined at bedside this AM. No acute events. OBJECTIVE: Vital Signs Period Temp Pulse Resp BP Sys/Wilson Pulse Ox Last 24 Hr 98.1 F-98.8 F 58-72 18-18 120-146/67-79 99 GENERAL: The patient is awake, alert, and fully oriented, in no acute distress. HEAD: Large bump on forehead chronic due to hitting head yrs ago. NECK: supple. LUNGS: Breath sounds equal, clear to auscultation bilaterally, no wheezes, no crackles, no accessory muscle use. HEART: Regular rate and rhythm, S1, S2 without murmur, rub or gallop. ABDOMEN: Soft, nontender, nondistended, no guarding, no rebound. EXTREMITIES: 2+ pulses, warm, well-perfused, no edema. NEUROLOGICAL: Cranial nerves II through XII grossly intact. Normal speech, gait not observed. PSYCH: Normal mood, normal affect. SKIN: Warm, dry, no rashes or lesions noted Laboratory Results - last 24 hr CBC, BMP 12/22/18 07:15 12/19/18 05:15 Laboratory Tests 12/20/18 12/21/18 12/21/18 19:45 06:54 06:57 INR 1.34 H PTT (Actin FS) 53.0 H 59.9 H 12/22/18 07:15 INR 1.40 H PTT (Actin FS) 58.5 H Active Medications Generic Name Dose Route Start Last Admin Trade Name Freq PRN Reason Stop Dose Admin Heparin Sodium (Porcine) 1,000 unit 12/19/18 18:56 Heparin - IVPUSH PRN PRN Heparin Heparin Sodium (Porcine) 5,000 unit 12/19/18 18:56 12/20/18 11:07 Heparin - IVPUSH 5,000 unit PRN PRN Administration Heparin Heparin Sodium (Porcine) 25, 500 mls @ 16 mls/hr 12/19/18 18:56 12/22/18 10: 06 000 unit/ Sodium Chloride IV 950 unit/hr TITR CORY 19 mls/hr Titration Protocol 800 UNIT/HR Lactobacillus Acidophilus 1 tab 12/20/18 14:45 12/22/18 10:06 Bacid - PO 1 tab DAILY CORY Administration ASSESSMENT/PLAN: 48 y/o M, w a PMH of gonnorhea, presents w/ lateral rib pain of 2 day duration that worsened today morning 2/ CT confirmed pulmonary infract. #Acute pulmonary embolus - thrombosis w/u negative - c/w Heparin and coumadin bridge 12.5 at night, daily INR checks. spoke w pt regarding ETOH cessation for 9 mths while on AC's. Counseled on smoking cessation. - As per pulm, o/p PFT's, c/w IBD's. - Malignancy w/u in progress - Incentive Spirometry - as per ID- no need to continue Abx - Heme recommending stool occult, did full thrombosis w/u. Rheumatod biomarker 24.7, free kappa LC- 28.6, free kappa/lambda raio: 1.63. - Anemia of chronic disease dx per labs. - continuing bacid #Night sweats, weight loss, hemoptysis QFN negative HIV negative G/C testing negative - sickle cell negative. DVT ppx: Heparin drip FEN: Regular diet Dispo: continue monitoring on med surg Visit type - Emergency Visit Emergency Visit: Yes ED Registration Date: 12/17/18 Care time: The patient presented to the Emergency Department on the above date and was hospitalized for further evaluation of their emergent condition. - New Patient This patient is new to me today: No - Critical Care Critical Care patient: No - Discharge Referral Referred to [facility] Med P.C.: No ATTENDING PHYSICIAN STATEMENT I saw and evaluated the patient. I reviewed the resident's note and discussed the case with the resident. I agree with the resident's findings and plan as documented. SUBJECTIVE: OBJECTIVE: ASSESSMENT AND PLAN:
--- NOTE | 2018-12-22 10:59 | PN ---
Teaching Attending Note Name of Resident: Roland Tellez ATTENDING PHYSICIAN STATEMENT I saw and evaluated the patient. I reviewed the resident's note and discussed the case with the resident. I agree with the resident's findings and plan as documented. SUBJECTIVE: Patient is feeling better with no acute distress. OBJECTIVE: Vital Signs Temperature 98.8 F 12/22/18 06:00 Pulse Rate 58 L 12/22/18 06:00 Respiratory Rate 18 12/22/18 06:00 Blood Pressure 130/78 12/22/18 06:00 O2 Sat by Pulse Oximetry (%) 99 12/21/18 21:00 GENERAL: The patient is awake, alert, and fully oriented, in no acute distress. HEAD: Normal with no signs of trauma. EYES: PERRL, extraocular movements intact, sclera anicteric, conjunctiva clear. ENT: Ears normal, oropharynx clear without exudates, moist mucous membranes. NECK: Trachea midline, full range of motion, supple. LUNGS: Breath sounds equal, clear to auscultation bilaterally, no wheezes, no crackles, no accessory muscle use. HEART: Regular rate and rhythm, S1, S2 without murmur, rub or gallop. ABDOMEN: Soft, nontender, nondistended, normoactive bowel sounds, no guarding, no rebound, no hepatosplenomegaly, no masses. EXTREMITIES: 2+ pulses, warm, well-perfused, no edema. NEUROLOGICAL: Cranial nerves II through XII grossly intact. Normal speech, gait not observed. PSYCH: Normal mood, normal affect. SKIN: Warm, dry, normal turgor, no rashes or lesions noted CBCD WBC 4.3 K/mm3 (4.0-10.0) 12/22/18 07:15 RBC 5.13 M/mm3 (4.00-5.60) 12/22/18 07:15 Hgb 12.1 GM/dL (11.7-16.9) 12/22/18 07:15 Hct 38.3 % (35.4-49) 12/22/18 07:15 MCV 74.7 fl (80-96) L 12/22/18 07:15 MCHC 31.7 g/dl (32.0-35.9) L 12/22/18 07:15 RDW 14.1 % (11.9-15.9) 12/22/18 07:15 Plt Count 266 K/MM3 (134-434) 12/22/18 07:15 MPV 8.5 fl (7.5-11.1) 12/22/18 07:15 CMP Sodium 140 mmol/L (136-145) 12/19/18 05:15 Potassium 3.6 mmol/L (3.5-5.1) 12/19/18 05:15 Chloride 106 mmol/L (98-107) 12/19/18 05:15 Carbon Dioxide 30 mmol/L (21-32) 12/19/18 05:15 Anion Gap 4 MMOL/L (8-16) L 12/19/18 05:15 BUN 6.2 mg/dL (7-18) L 12/19/18 05:15 Creatinine 0.7 mg/dL (0.55-1.3) 12/19/18 05:15 Random Glucose 94 mg/dL (74-106) 12/19/18 05:15 Calcium 8.5 mg/dL (8.5-10.1) 12/19/18 05:15 Total Bilirubin 0.4 mg/dL (0.2-1) 12/19/18 05:15 AST 28 U/L (15-37) 12/19/18 05:15 ALT 27 U/L (13-61) 12/19/18 05:15 Alkaline Phosphatase 65 U/L (45-117) 12/19/18 05:15 Total Protein 6.7 g/dl (6.4-8.2) 12/19/18 05:15 Albumin 2.8 g/dl (3.4-5.0) L 12/19/18 05:15 CARDIAC ENZYMES Creatine Kinase 181 U/L (26-308) 12/17/18 02:02 Troponin I < 0.02 ng/ml (0.00-0.05) 12/17/18 02:02 Current Medications Generic Name Dose Route Start Last Admin Trade Name Freq PRN Reason Stop Dose Admin Heparin Sodium (Porcine) 1,000 unit 12/19/18 18:56 Heparin - IVPUSH PRN PRN Heparin Heparin Sodium (Porcine) 5,000 unit 12/19/18 18:56 12/20/18 11:07 Heparin - IVPUSH 5,000 unit PRN PRN Administration Heparin Heparin Sodium (Porcine) 25, 500 mls @ 16 mls/hr 12/19/18 18:56 12/22/18 10: 06 000 unit/ Sodium Chloride IV 950 unit/hr TITR CORY 19 mls/hr Titration Protocol 800 UNIT/HR Lactobacillus Acidophilus 1 tab 12/20/18 14:45 12/22/18 10:06 Bacid - PO 1 tab DAILY CORY Administration Home Medications Medication Instructions Recorded NK [No Known Home Medication] 12/16/18 Laboratory Tests 12/20/18 12/20/18 12/21/18 07:00 19:45 06:54 PT with INR 11.50 15.80 H INR 0.97 1.34 H PTT (Actin FS) 53.0 H 12/22/18 07:15 PT with INR 16.60 H INR 1.40 H PTT (Actin FS) 58.5 H ASSESSMENT AND PLAN: Patient is a 48 y/o Male presents to ED with lateral rib pain x 2 days and was found to have bl pulmonary infract on CTA. # Acute B/L PE: on heparin started the paTIENT ON COUMADIN 12.5mg adjust according PT/INR , oncology consult appreciated , incentive spirometer, CT scan of abdomen and pelvis and chest : no obvious neoplasm, patient drinks alcohol (Renata) on a daily basis , smokes 1/2 ppd cut down from 2ppd. Bridge heparin - -->coumadin or NOAC. as per hem/onc. Patient was suggested that he cannot continue drinking alcohol while on a blood thinner for at least 9 months. # Possible Pneumonia On IV Rocephin continue #Hiv is negative, /gc pending, SS is negative , pulm. is on the case. DVT Px: heparin metastatic series is pending coumadin 12.5mg tonight adjust according his PT/INR, patient has no medication coverage.
--- NOTE | 2018-12-22 12:40 | PN ---
Progress Note (short form) - Note Progress Note: Comfortable on RA. No CP or SOB. No hemoptysis. Intake & Output 12/19/18 12/20/18 12/21/18 12/22/18 23:59 23:59 23:59 23:59 Intake Total 3848 153 8931 230 Output Total 500 700 900 Balance 416 09 0756 -670 Weight 128 lb Last Vital Signs Temp Pulse Resp BP Pulse Ox 98 F 98 H 18 167/80 98 12/22/18 10:00 12/22/18 10:00 12/22/18 10:00 12/22/18 10:00 12/22/18 09:00 Active Medications Heparin Sodium (Porcine) (Heparin -) 1,000 unit IVPUSH PRN PRN PRN Reason: Heparin Heparin Sodium (Porcine) (Heparin -) 5,000 unit IVPUSH PRN PRN PRN Reason: Heparin Last Admin: 12/20/18 11:07 Dose: 5,000 unit Heparin Sodium (Porcine) 25, (000 unit/ Sodium Chloride) 500 mls @ 16 mls/hr IV TITR CORY; Protocol Last Titration: 12/22/18 10:06 Dose: 950 unit/hr, 19 mls/hr Lactobacillus Acidophilus (Bacid -) 1 tab PO DAILY CORY Last Admin: 12/22/18 10:06 Dose: 1 tab Constitutional: Yes: Calm, Thin Eyes: Yes: WNL HENT: Yes: WNL Neck: Yes: WNL Cardiovascular: Yes: Regular Rate and Rhythm, S1, S2 Respiratory: Yes: CTA Bilaterally Gastrointestinal: Yes: Normal Bowel Sounds, Soft Extremities: Yes: WNL Edema: No Labs: Laboratory Results - last 24 hr 12/20/18 12/22/18 12/22/18 07:00 07:15 07:15 WBC 4.3 RBC 5.13 Hgb 12.1 Hct 38.3 MCV 74.7 L MCH 23.7 L MCHC 31.7 L RDW 14.1 Plt Count 266 MPV 8.5 PT with INR 16.60 H INR 1.40 H PTT (Actin FS) 58.5 H [place] LC, Quant 28.6 H Free [place] LC, Quant 17.5 [place]/Lambda Ratio 1.63 Assessment/Plan Problem List - Problems (1) Bilateral pulmonary embolism Code(s): I26.99 - OTHER PULMONARY EMBOLISM WITHOUT ACUTE COR PULMONALE (2) Smoker Code(s): F17.200 - NICOTINE DEPENDENCE, UNSPECIFIED, UNCOMPLICATED (3) Pneumonia Code(s): J18.9 - PNEUMONIA, UNSPECIFIED ORGANISM (4) Pulmonary infarct Code(s): I26.99 - OTHER PULMONARY EMBOLISM WITHOUT ACUTE COR PULMONALE Assessment/Plan AC Heparin-coumadin Thrombosis workup O2 as needed Monitor off ABX Pro-biotic Incentive Spirometry Age appropriate malignancy screening (has had very poor medical follow up) Smoking cessation discussed Outpatient PFTs Dr Ding Problem List - Problems (1) Bilateral pulmonary embolism Code(s): I26.99 - OTHER PULMONARY EMBOLISM WITHOUT ACUTE COR PULMONALE (2) Smoker Code(s): F17.200 - NICOTINE DEPENDENCE, UNSPECIFIED, UNCOMPLICATED (3) Pneumonia Code(s): J18.9 - PNEUMONIA, UNSPECIFIED ORGANISM (4) Pulmonary infarct Code(s): I26.99 - OTHER PULMONARY EMBOLISM WITHOUT ACUTE COR PULMONALE
[2018-12-22] MEDS ORDERED: WARFARIN NA 10 MG TABLET (FP) PO SCH (18:00)
[2018-12-22] MEDS ORDERED: PT OWN MED DRAWER 7, Y5N ONE (18:10)
[2018-12-22] MEDS: WARFARIN NA 10 MG, WARFARIN NA 2.5 MG PO SCH (18:48)
[2018-12-22] MEDS: HEPARIN - 25,000 UNIT in SODIUM CHLORIDE 495 ML IV SCH (18:48)
[2018-12-23 08:12] LABS: HEMATOCRIT 39.8 % (35.4-49); HEMOGLOBIN 12.6 GM/dL (11.7-16.9); MCH 23.7 pg (25.7-33.7); MCHC 31.5 g/dl (32.0-35.9); MEAN CELL VOLUME 75.2 fl (80-96); MEAN PLT VOLUME 8.5 fl (7.5-11.1); PLATELET COUNT 296 K/MM3 (134-434); RBC 5.29 M/mm3 (4.00-5.60); RDW 14.2 % (11.9-15.9); WHITE BLOOD COUNT 4.5 K/mm3 (4.0-10.0)
[2018-12-23 08:40] LABS: INR 1.72 (0.83-1.09); PROTHROMBIN TIME (PATIENT) 20.4 SEC (9.7-13.0)
[2018-12-23] MEDS: LACTOBACILLUS ACIDOPHILUS 1 TABLET PO SCH (09:19)
[2018-12-23 09:23] LABS: ACTIVATED PTT 83.4 SECONDS (25.2-36.5)
--- NOTE | 2018-12-23 14:31 | PN ---
Progress Note (short form) - Note Progress Note: PULMONARY Denies shortness of breath, chest pain or hemoptysis. Vital Signs Period Temp Pulse Resp BP Sys/Wilson Pulse Ox Last 24 Hr 97.9 F-98.3 F 58-95 18-18 119-152/56-94 99 Gen: NAD at rest Heart: RRR Lung: decreased breath sounds at the bases Abd: soft, nontender Ext: no edema CBC, BMP 12/23/18 07:25 12/19/18 05:15 INR, PTT INR 1.72 (0.83-1.09) H 12/23/18 07:25 Active Medications Heparin Sodium (Porcine) (Heparin -) 1,000 unit IVPUSH PRN PRN PRN Reason: Heparin Heparin Sodium (Porcine) (Heparin -) 5,000 unit IVPUSH PRN PRN PRN Reason: Heparin Last Admin: 12/20/18 11:07 Dose: 5,000 unit Heparin Sodium (Porcine) 25, (000 unit/ Sodium Chloride) 500 mls @ 16 mls/hr IV TITR CORY; Protocol Last Admin: 12/22/18 18:48 Dose: 950 unit/hr, 19 mls/hr Lactobacillus Acidophilus (Bacid -) 1 tab PO DAILY CORY Last Admin: 12/23/18 09:19 Dose: 1 tab Warfarin Sodium 10 mg/ (Warfarin Sodium 2.5 mg) 12.5 mg PO DAILY@1800 CORY Last Admin: 12/22/18 18:48 Dose: 12.5 mg A/P Acute Pulmonary Embolism Pulmonary Infarct Smoker - continue anticoagulation to target INR 2-3 - age appropriate malignancy screening - smoking cessation
--- NOTE | 2018-12-23 16:22 | PN ---
Teaching Attending Note Name of Resident: Roland Tellez ATTENDING PHYSICIAN STATEMENT I saw and evaluated the patient. I reviewed the resident's note and discussed the case with the resident. I agree with the resident's findings and plan as documented. SUBJECTIVE: Patient has no complaints. OBJECTIVE: Vital Signs Period Temp Pulse Resp BP Sys/Wilson Pulse Ox Last 24 Hr 97.9 F-98.4 F 58-95 18-18 92-152/56-94 99 HEART: S1S2, RRR LUNGS: Clear ABDOMEN: Soft, non-tender, non-distended, normal BS EXTREMITIES: No edema Laboratory Results - last 24 hr 12/23/18 12/23/18 07:25 07:25 WBC 4.5 RBC 5.29 Hgb 12.6 Hct 39.8 MCV 75.2 L MCH 23.7 L MCHC 31.5 L RDW 14.2 Plt Count 296 MPV 8.5 PT with INR 20.40 H INR 1.72 H PTT (Actin FS) 83.4 H Current Medications Generic Name Dose Route Start Last Admin Trade Name Freq PRN Reason Stop Dose Admin Heparin Sodium (Porcine) 1,000 unit 12/19/18 18:56 Heparin - IVPUSH PRN PRN Heparin Heparin Sodium (Porcine) 5,000 unit 12/19/18 18:56 12/20/18 11:07 Heparin - IVPUSH 5,000 unit PRN PRN Administration Heparin Heparin Sodium (Porcine) 25, 500 mls @ 16 mls/hr 12/19/18 18:56 12/22/18 18: 48 000 unit/ Sodium Chloride IV 950 unit/hr TITR CORY 19 mls/hr Administration Protocol 800 UNIT/HR Lactobacillus Acidophilus 1 tab 12/20/18 14:45 12/23/18 09:19 Bacid - PO 1 tab DAILY CORY Administration Warfarin Sodium 10 mg/ 12.5 mg 12/22/18 18:00 12/22/18 18:48 Warfarin Sodium 2.5 mg PO 12.5 mg DAILY@1800 CORY Administration ASSESSMENT AND PLAN: This is a 48 year old man with a history of gonorrhea who presented to the ED with rib pain and SOB. 1. Acute pulmonary emboli, bilateral, with pulmonary infarcts, hemoptysis, night sweats, cachexia/weight loss - On Coumadin - Continue heparin IV until INR therapeutic - Protein S normal - PSA normal - Stool negative for occult blood; sickle screen (-); Hgb electrophoresis pending - RA (+); DANIEL (-) - [place] light chains high; SPEP pending - HIV (-) - TB quantiferon (-) 2. Anemia secondary to chronic illness - Hemoglobin stable - Stool negative for occult blood; sickle screen (-); Hgb electrophoresis pending 3. Severe malnutrition - Continue Ensure Enlive
[2018-12-23] MEDS: WARFARIN NA 10 MG, WARFARIN NA 2.5 MG PO SCH (17:15)
--- NOTE | 2018-12-23 18:02 | PN ---
Physical Exam: SUBJECTIVE: Patient seen and examined at bedside this AM. Explained to the sister at bedside whats going on with him. OBJECTIVE: Vital Signs Period Temp Pulse Resp BP Sys/Wilson Pulse Ox Last 24 Hr 97.9 F-98.4 F 58-95 18-18 92-152/59-94 99 GENERAL: The patient is awake, alert, and fully oriented, in no acute distress. HEAD: Large bump on forehead chronic due to hitting head yrs ago. NECK: supple. LUNGS: Breath sounds equal, clear to auscultation bilaterally, no wheezes, no crackles, no accessory muscle use. HEART: Regular rate and rhythm, S1, S2 without murmur, rub or gallop. ABDOMEN: Soft, nontender, nondistended, no guarding, no rebound. EXTREMITIES: 2+ pulses, warm, well-perfused, no edema. NEUROLOGICAL: Cranial nerves II through XII grossly intact. Normal speech, gait not observed. PSYCH: Normal mood, normal affect. SKIN: Warm, dry, no rashes or lesions noted Laboratory Results - last 24 hr 12/21/18 12/23/18 12/23/18 06:54 07:25 07:25 WBC 4.5 RBC 5.29 Hgb 12.6 Hct 39.8 MCV 75.2 L MCH 23.7 L MCHC 31.5 L RDW 14.2 Plt Count 296 MPV 8.5 PT with INR 20.40 H INR 1.72 H PTT (Actin FS) 83.4 H DANIEL Screen Negative Active Medications Generic Name Dose Route Start Last Admin Trade Name Freq PRN Reason Stop Dose Admin Heparin Sodium (Porcine) 1,000 unit 12/19/18 18:56 Heparin - IVPUSH PRN PRN Heparin Heparin Sodium (Porcine) 5,000 unit 12/19/18 18:56 12/20/18 11:07 Heparin - IVPUSH 5,000 unit PRN PRN Administration Heparin Heparin Sodium (Porcine) 25, 500 mls @ 16 mls/hr 12/19/18 18:56 12/22/18 18: 48 000 unit/ Sodium Chloride IV 950 unit/hr TITR CORY 19 mls/hr Administration Protocol 800 UNIT/HR Lactobacillus Acidophilus 1 tab 12/20/18 14:45 12/23/18 09:19 Bacid - PO 1 tab DAILY CORY Administration Warfarin Sodium 10 mg/ 12.5 mg 12/22/18 18:00 12/23/18 17:15 Warfarin Sodium 2.5 mg PO 12.5 mg DAILY@1800 CORY Administration ASSESSMENT/PLAN: 48 y/o M, w a PMH of gonnorhea, presents w/ lateral rib pain of 2 day duration that worsened today morning 2/ CT confirmed pulmonary infract. #Acute pulmonary embolus - thrombosis w/u negative - c/w Heparin and coumadin bridge 12.5 at night, daily INR checks to goal of 2- 3. ETOH cessation for 9 mths while on AC's. Counseled on smoking cessation. - As per pulm, o/p PFT's, c/w IBD's. - Malignancy series of xrays negative - Incentive Spirometry - off abx - Heme recommending stool occult, did full thrombosis w/u awaiting more tests. - Anemia of chronic disease dx per labs. - continuing bacid #Night sweats, weight loss, hemoptysis - SPEP pending - DANIEL negative - RF positive - HIV negative, G/C negative DVT ppx: Heparin drip and coumadin bridge FEN: Regular diet Dispo: continue monitoring on med surg Visit type - Emergency Visit Emergency Visit: Yes ED Registration Date: 12/17/18 Care time: The patient presented to the Emergency Department on the above date and was hospitalized for further evaluation of their emergent condition. - New Patient This patient is new to me today: No - Critical Care Critical Care patient: No - Discharge Referral Referred to [facility] Med P.C.: No ATTENDING PHYSICIAN STATEMENT I saw and evaluated the patient. I reviewed the resident's note and discussed the case with the resident. I agree with the resident's findings and plan as documented. SUBJECTIVE: OBJECTIVE: ASSESSMENT AND PLAN:
[2018-12-23] MEDS: HEPARIN - 25,000 UNIT in SODIUM CHLORIDE 495 ML IV SCH (21:56)
[2018-12-24 08:43] LABS: HEMATOCRIT 40.5 % (35.4-49); HEMOGLOBIN 13.1 GM/dL (11.7-16.9); MCH 24.1 pg (25.7-33.7); MCHC 32.3 g/dl (32.0-35.9); MEAN CELL VOLUME 74.6 fl (80-96); MEAN PLT VOLUME 9.1 fl (7.5-11.1); PLATELET COUNT 306 K/MM3 (134-434); RBC 5.42 M/mm3 (4.00-5.60); RDW 14.5 % (11.9-15.9); WHITE BLOOD COUNT 5.1 K/mm3 (4.0-10.0)
[2018-12-24] MEDS: LACTOBACILLUS ACIDOPHILUS 1 TABLET PO SCH (09:43)
[2018-12-24 09:47] LABS: INR 2.19 (0.83-1.09); PROTHROMBIN TIME (PATIENT) 26.1 SEC (9.7-13.0)
[2018-12-24 12:08] LABS: HGB SOLUBILITY Negative (Negative); Hgb C 0 % (0.0); Hgb F 0 % (0.0-2.0); Hgb S 0 % (0.0)
--- NOTE | 2018-12-24 15:51 | PN ---
Teaching Attending Note Name of Resident: Roland Tellez ATTENDING PHYSICIAN STATEMENT I saw and evaluated the patient. I reviewed the resident's note and discussed the case with the resident. I agree with the resident's findings and plan as documented. SUBJECTIVE: Patient has no complaints. OBJECTIVE: Vital Signs Period Temp Pulse Resp BP Sys/Wilson Pulse Ox Last 24 Hr 97.9 F-98.2 F 63-80 16-19 104-145/52-88 98-98 HEART: S1S2, RRR LUNGS: Clear ABDOMEN: Soft, non-tender, non-distended, normal BS EXTREMITIES: No edema Laboratory Results - last 24 hr 12/20/18 12/20/18 12/21/18 07:00 07:00 06:54 WBC RBC Hgb Hct MCV MCH MCHC RDW Plt Count MPV Hemoglobin A 97.9 Hemoglobin A2 2.1 Hemoglobin C 0 Hemoglobin S 0 Variant Hemoglobin 0.0 Hemoglobin Interpret Maternal Rh 0 Hemoglobin Solubility Negative PT with INR INR PTT (Actin FS) Beta Globulins 0.8 CHANDAN & SPEP Interp Total Protein (CHANDAN) 6.2 Albumin (CHANDAN) 2.8 L Albumin/Globulin (CHANDAN) 0.9 Zydrx-4-Qmrydcmqj CHANDAN 0.3 Njeac-5-Sfkkbkyie CHANDAN 1.1 H Gamma Globulins (CHANDAN) 1.2 CHANADN M-Samy Not observed CHANDAN Comments IEP IgG 1251 IEP IgA 149 IEP IgM 80 DANIEL Screen Negative 12/24/18 12/24/18 12/24/18 07:35 07:35 07:35 WBC 5.1 RBC 5.42 Hgb 13.1 Hct 40.5 MCV 74.6 L MCH 24.1 L MCHC 32.3 RDW 14.5 Plt Count 306 MPV 9.1 Hemoglobin A Hemoglobin A2 Hemoglobin C Hemoglobin S Variant Hemoglobin Hemoglobin Interpret Maternal Rh Hemoglobin Solubility PT with INR 26.10 H INR 2.19 H PTT (Actin FS) 100.0 H Beta Globulins CHANDAN & SPEP Interp Total Protein (CHANDAN) Albumin (CHANDAN) Albumin/Globulin (CHANDAN) Gzigt-1-Zocqhnhve CHANDAN Pbact-0-Odlqmgwor CHANDAN Gamma Globulins (CAHNDAN) CHANDAN M-Samy CHANDAN Comments IEP IgG IEP IgA IEP IgM DANIEL Screen Current Medications Generic Name Dose Route Start Last Admin Trade Name Freq PRN Reason Stop Dose Admin Lactobacillus Acidophilus 1 tab 12/20/18 14:45 12/24/18 09:43 Bacid - PO 1 tab DAILY CORY Administration Warfarin Sodium 10 mg/ 12.5 mg 12/22/18 18:00 12/23/18 17:15 Warfarin Sodium 2.5 mg PO 12.5 mg DAILY@1800 CORY Administration ASSESSMENT AND PLAN: This is a 48 year old man with a history of gonorrhea who presented to the ED with rib pain and SOB. 1. Acute pulmonary emboli, bilateral, with pulmonary infarcts, hemoptysis, night sweats, cachexia/weight loss - On Coumadin - INR therapeutic - Discontinue heparin IV - Protein S normal - PSA normal - Stool negative for occult blood; sickle screen (-); Hgb electrophoresis pending - RA (+); DANIEL (-) - [place] light chains high; SPEP M-spike (-) - HIV (-) - TB quantiferon (-) 2. Anemia secondary to chronic illness - Hemoglobin stable - Stool negative for occult blood; sickle screen (-); Hgb electrophoresis normal 3. (+) rheumatoid factor - No evidence of RA - Awaiting rheumatology consult 4. Severe malnutrition - Continue Ensure Enlive
--- NOTE | 2018-12-24 16:14 | CONSULT ---
Consult Consult Specialty:: Rheumatology - History of Present Illness History of Present Illness: 48 y/o male with history of alcoholism, poor oral intake and 20 lb weight loss, admitted with acute pulmonary embolism. The patient was otherwise in good health working in a physically demanding job. He was found to have a positive rheumatoid factor. HPI The patient reports that 2 days ago he developed pain in abdomen, RUQ and diffuse. He denied diarrhea, shortness of breath, cough, joint pain, morning stiffness, limitation in his physical activities, general malaise, fatigue, Sicca syndrome or fever. On admission duplex US of both legs was negative for DVT. CTA of chest reported with acute embolus within the right lower lobe pulmonary artery and distal segmental branches and acute segmental emboli within the medial basal segment of the LLL. Several non-specific mildly enlarged hilar lymph nodes. X rays for metastasic series was negative, Laboratory work-up revealed CBC with hypochroma and microcytosis, SMA-7, liver function tests and urinalysis essentially normal. Rheumatoid factor 24.7 and DANIEL negative. M spike was negative, free kappa elevated (28.6), free lambda and kappa/lambda ratio within normal range. HIV and Quantiferon were negative. ESR 27, hemoglobin electrophoresis normal. - History Source History Provided By: Patient, Medical Record Limitations to Obtaining History: No Limitations - Past Medical History Pulmonary: Yes: Bronchitis. No: Asthma, Cancer, COPD, O2 Dependent, Pneumonia, Previously Intubated, Pulmonary Embolus, Pulmonary Fibrosis, Sleep Apnea - Alcohol/Substance Use Hx Alcohol Use: No - Smoking History Smoking history: Current every day smoker Home Medications - Allergies Allergies/Adverse Reactions: Allergies Allergy/AdvReac Type Severity Reaction Status Date / Time No Known Allergies Allergy Verified 12/16/18 18:43 - Home Medications Home Medications: Ambulatory Orders NK [No Known Home Medication] 12/16/18 Review of Systems - Review of Systems Constitutional: reports: No Symptoms Eyes: reports: No Symptoms HENT: reports: No Symptoms Neck: reports: No Symptoms Cardiovascular: reports: No Symptoms Respiratory: reports: No Symptoms Gastrointestinal: reports: Other (See HPI) Musculoskeletal: reports: No Symptoms Integumentary: reports: No Symptoms Physical Exam Vital Signs: Vital Signs Temperature 97.9 F 12/24/18 15:06 Pulse Rate 77 12/24/18 15:06 Respiratory Rate 18 12/24/18 15:06 Blood Pressure 104/52 L 12/24/18 15:06 O2 Sat by Pulse Oximetry (%) 98 12/24/18 09:00 Constitutional: Yes: Thin Eyes: Yes: WNL HENT: Yes: WNL Neck: Yes: WNL Cardiovascular: Yes: WNL Respiratory: Yes: WNL Gastrointestinal: Yes: WNL Musculoskeletal: Yes: Other (No other active joints.) Labs: CBC, BMP 12/24/18 07:35 12/19/18 05:15 Laboratory Tests 12/17/18 12/17/18 12/17/18 02:02 06:39 06:39 ESR Hemoglobin A Hemoglobin A2 Hemoglobin C Hemoglobin S Variant Hemoglobin PT with INR INR PTT (Actin FS) Iron TIBC Iron Saturation Unsaturated IBC Ferritin Total Bilirubin AST ALT LD Total Total Protein Albumin Urine Color Yellow Urine Appearance Clear Urine pH 5.0 Ur Specific [place] 1.047 H Urine Protein Negative Urine Glucose (UA) Negative Urine Ketones Negative Urine Blood Negative Urine Nitrite Negative Urine Bilirubin Negative Urine Urobilinogen 0.2 Ur Leukocyte Esterase Negative Total Protein (CHANDAN) Albumin (CHANDAN) Albumin/Globulin (CHANDAN) Yyuga-2-Olbqqbkzj CHANDAN Adwyi-2-Pbyadaszs CHANDAN Gamma Globulins (CHANDAN) CHANDAN M-Samy IEP IgG IEP IgA IEP IgM Rheumatoid Arth Biomark DANIEL Screen Negative Free [place] LC, Quant Free Lambda LC, Quant Free [place]/Lambda Ratio C. trachomatis (AMA) Negative HIV 1&2 Ag/Ab, 4th Gen N. gonorrhoeae (AMA) Negative TB Test (QFT) 12/17/18 12/19/18 12/19/18 08:18 05:15 05:15 ESR Hemoglobin A Hemoglobin A2 Hemoglobin C Hemoglobin S Variant Hemoglobin PT with INR INR PTT (Actin FS) Iron TIBC Iron Saturation Unsaturated IBC Ferritin Total Bilirubin 0.4 AST 28 ALT 27 LD Total Total Protein 6.7 Albumin 2.8 L Urine Color Urine Appearance Urine pH Ur Specific [place] Urine Protein Urine Glucose (UA) Urine Ketones Urine Blood Urine Nitrite Urine Bilirubin Urine Urobilinogen Ur Leukocyte Esterase Total Protein (CHANDAN) Albumin (CHANDAN) Albumin/Globulin (CHANDAN) Yeice-8-Ceqosbldk CHANDAN Jcbyu-9-Xzxrqagnb CHANDAN Gamma Globulins (CHANDAN) CHANDAN M-Samy IEP IgG IEP IgA IEP IgM Rheumatoid Arth Biomark DANIEL Screen Free [place] LC, Quant Free Lambda LC, Quant Free [place]/Lambda Ratio C. trachomatis (AMA) HIV 1&2 Ag/Ab, 4th Gen Non reactive N. gonorrhoeae (AMA) TB Test (QFT) Negative 12/20/18 12/20/18 12/20/18 07:00 07:00 07:00 ESR Hemoglobin A 97.9 Hemoglobin A2 2.1 Hemoglobin C 0 Hemoglobin S 0 Variant Hemoglobin 0.0 PT with INR INR PTT (Actin FS) Iron TIBC Iron Saturation Unsaturated IBC Ferritin Total Bilirubin AST ALT LD Total Total Protein Albumin Urine Color Urine Appearance Urine pH Ur Specific [place] Urine Protein Urine Glucose (UA) Urine Ketones Urine Blood Urine Nitrite Urine Bilirubin Urine Urobilinogen Ur Leukocyte Esterase Total Protein (CHANDAN) 6.2 Albumin (CHANDAN) 2.8 L Albumin/Globulin (CHANDAN) 0.9 Lzhkr-6-Nufscppbh CHANDAN 0.3 Pmevj-7-Ydirnhmme CHANDAN 1.1 H Gamma Globulins (CHANDAN) 1.2 CHANDAN M-Samy Not observed IEP IgG 1251 IEP IgA 149 IEP IgM 80 Rheumatoid Arth Biomark DANIEL Screen Free [place] LC, Quant 28.6 H Free Lambda LC, Quant 17.5 Free [place]/Lambda Ratio 1.63 C. trachomatis (AMA) HIV 1&2 Ag/Ab, 4th Gen N. gonorrhoeae (AMA) TB Test (QFT) 12/20/18 12/20/18 12/21/18 07:00 07:00 06:57 ESR 27 H Hemoglobin A Hemoglobin A2 Hemoglobin C Hemoglobin S Variant Hemoglobin PT with INR INR PTT (Actin FS) Iron 56 TIBC 208 L Iron Saturation 26 Unsaturated IBC 152 L Ferritin 169.6 Total Bilirubin AST ALT LD Total 134 Total Protein Albumin Urine Color Urine Appearance Urine pH Ur Specific [place] Urine Protein Urine Glucose (UA) Urine Ketones Urine Blood Urine Nitrite Urine Bilirubin Urine Urobilinogen Ur Leukocyte Esterase Total Protein (CHANDAN) Albumin (CHANDAN) Albumin/Globulin (CHANDAN) Sawdj-3-Ylawcbjqs CHANDAN Jrpys-4-Crfkxdcqm CHANDAN Gamma Globulins (CHANDAN) CHANDAN M-Samy IEP IgG IEP IgA IEP IgM Rheumatoid Arth Biomark 24.7 H DANIEL Screen Free [place] LC, Quant Free Lambda LC, Quant Free [place]/Lambda Ratio C. trachomatis (AMA) HIV 1&2 Ag/Ab, 4th Gen N. gonorrhoeae (AMA) TB Test (QFT) 12/24/18 12/24/18 07:35 07:35 ESR Hemoglobin A Hemoglobin A2 Hemoglobin C Hemoglobin S Variant Hemoglobin PT with INR 26.10 H INR 2.19 H PTT (Actin FS) 100.0 H Iron TIBC Iron Saturation Unsaturated IBC Ferritin Total Bilirubin AST ALT LD Total Total Protein Albumin Urine Color Urine Appearance Urine pH Ur Specific [place] Urine Protein Urine Glucose (UA) Urine Ketones Urine Blood Urine Nitrite Urine Bilirubin Urine Urobilinogen Ur Leukocyte Esterase Total Protein (CHANDAN) Albumin (CHANDAN) Albumin/Globulin (CHANDAN) Rdgzt-5-Jmxnxuyuu CHANDAN Kxrut-2-Wpomtmpvd CHANDAN Gamma Globulins (CHANDAN) CHANDAN M-Samy IEP IgG IEP IgA IEP IgM Rheumatoid Arth Biomark DANIEL Screen Free [place] LC, Quant Free Lambda LC, Quant Free [place]/Lambda Ratio C. trachomatis (AMA) HIV 1&2 Ag/Ab, 4th Gen N. gonorrhoeae (AMA) TB Test (QFT) Problem List - Problems (1) Rheumatoid factor positive Assessment/Plan: Rheumatoid factor positive with no inflammatory arthritis. Rule out cryoglobulin, rule out hepatitis C. Probably not related to hypercoagulable state. Plan: HCV, complement. Code(s): R76.8 - OTHER SPECIFIED ABNORMAL IMMUNOLOGICAL FINDINGS IN SERUM (2) Bilateral pulmonary embolism Assessment/Plan: Bilateral pulmonary embolism with no obvious risk factor. Rule out hypercoagulable state. Plan: anti-cardiolipin antibodies. Code(s): I26.99 - OTHER PULMONARY EMBOLISM WITHOUT ACUTE COR PULMONALE
[2018-12-24] MEDS: WARFARIN NA 10 MG, WARFARIN NA 2.5 MG PO SCH (17:19)
--- NOTE | 2018-12-24 18:48 | PN ---
Physical Exam: SUBJECTIVE: Patient seen and examined at bedside. No acute events. OBJECTIVE: Vital Signs Period Temp Pulse Resp BP Sys/Wilson Pulse Ox Last 24 Hr 97.9 F-98.2 F 63-80 16-19 104-145/52-88 98-98 GENERAL: The patient is awake, alert, and fully oriented, in no acute distress. Cachectic. HEAD: Normal with no signs of trauma. NECK: supple. LUNGS: Breath sounds equal, clear to auscultation bilaterally, no wheezes, no crackles, no accessory muscle use. HEART: Regular rate and rhythm, S1, S2 without murmur, rub or gallop. ABDOMEN: cachectic,Soft, nontender, nondistended, no guarding, no rebound. EXTREMITIES: warm, well-perfused, no edema. NEUROLOGICAL: Cranial nerves II through XII grossly intact. Normal speech, gait not observed. PSYCH: Normal mood, normal affect. SKIN: Warm, dry, no rashes or lesions noted Laboratory Results - last 24 hr 12/20/18 12/24/18 12/24/18 07:00 07:35 07:35 WBC 5.1 RBC 5.42 Hgb 13.1 Hct 40.5 MCV 74.6 L MCH 24.1 L MCHC 32.3 RDW 14.5 Plt Count 306 MPV 9.1 Hemoglobin A 97.9 Hemoglobin A2 2.1 Hemoglobin C 0 Hemoglobin S 0 Variant Hemoglobin 0.0 Hemoglobin Interpret Maternal Rh 0 Hemoglobin Solubility Negative PT with INR INR PTT (Actin FS) 100.0 H 12/24/18 07:35 WBC RBC Hgb Hct MCV MCH MCHC RDW Plt Count MPV Hemoglobin A Hemoglobin A2 Hemoglobin C Hemoglobin S Variant Hemoglobin Hemoglobin Interpret Maternal Rh Hemoglobin Solubility PT with INR 26.10 H INR 2.19 H PTT (Actin FS) Active Medications Generic Name Dose Route Start Last Admin Trade Name Freq PRN Reason Stop Dose Admin Lactobacillus Acidophilus 1 tab 12/20/18 14:45 12/24/18 09:43 Bacid - PO 1 tab DAILY CORY Administration Warfarin Sodium 10 mg/ 12.5 mg 12/22/18 18:00 12/24/18 17:19 Warfarin Sodium 2.5 mg PO 12.5 mg DAILY@1800 [facility] Administration ASSESSMENT/PLAN: 48 y/o M, w a PMH of gonnorhea, presents w/ lateral rib pain of 2 day duration that worsened today morning 2/ CT confirmed pulmonary infract. #Acute pulmonary embolus - thrombosis w/u negative - c/w Heparin and coumadin bridge 12.5 at night, daily INR checks to goal of 2- 3. - INR- 2.1 will rpt in AM. - As per pulm, o/p PFT's, c/w IBD's. - Malignancy series of xrays negative - Incentive Spirometry - off abx - Heme recommending stool occult, did full thrombosis w/u awaiting more tests. - Anemia of chronic disease dx per labs. - continuing bacid - Solder Technician evaluated and counceled pt on increasing caloric intake. #Night sweats, weight loss, hemoptysis - SPEP pending - DANIEL negative - RF positive - HIV negative, G/C negative - Dr portillo evaluation: he wants to r/o cryoglobulin, HCV. Probably not related to hypercoagulable state. Plan: HCV, complement. DVT ppx: Heparin drip and coumadin bridge FEN: Regular diet Dispo: spoke with daughter regarding need for frequent rpt INR checks as an o/ p. Visit type - Emergency Visit Emergency Visit: Yes ED Registration Date: 12/17/18 Care time: The patient presented to the Emergency Department on the above date and was hospitalized for further evaluation of their emergent condition. - New Patient This patient is new to me today: No - Critical Care Critical Care patient: No - Discharge Referral [facility]erred to [facility] Med P.C.: No ATTENDING PHYSICIAN STATEMENT I saw and evaluated the patient. I reviewed the resident's note and discussed the case with the resident. I agree with the resident's findings and plan as documented. SUBJECTIVE: OBJECTIVE: ASSESSMENT AND PLAN:
[2018-12-25 08:58] LABS: HEMATOCRIT 42.8 % (35.4-49); HEMOGLOBIN 13.5 GM/dL (11.7-16.9); MCH 23.9 pg (25.7-33.7); MCHC 31.6 g/dl (32.0-35.9); MEAN CELL VOLUME 75.6 fl (80-96); MEAN PLT VOLUME 8.8 fl (7.5-11.1); PLATELET COUNT 346 K/MM3 (134-434); RBC 5.67 M/mm3 (4.00-5.60); RDW 14.6 % (11.9-15.9); WHITE BLOOD COUNT 5.9 K/mm3 (4.0-10.0)
[2018-12-25 09:35] LABS: PROTHROMBIN TIME (PATIENT) 29.6 SEC (9.7-13.0)
[2018-12-25 09:38] LABS: ACTIVATED PTT 50.3 SECONDS (25.2-36.5)
[2018-12-25] MEDS: LACTOBACILLUS ACIDOPHILUS 1 TABLET PO SCH (11:00)
[2018-12-25 13:01] LABS: INR 2.49 (0.83-1.09)
[2018-12-25 13:46] LABS: INR 2.92 (0.83-1.09); PROTHROMBIN TIME (PATIENT) 34.8 SEC (9.7-13.0)
[2018-12-25 14:26] VITALS: BP 110/59; PULSE 86; TEMP 98.1
--- NOTE | 2018-12-25 14:52 | PN ---
Teaching Attending Note Name of Resident: Joanne Hughes ATTENDING PHYSICIAN STATEMENT I saw and evaluated the patient. I reviewed the resident's note and discussed the case with the resident. I agree with the resident's findings and plan as documented. SUBJECTIVE: no pain , no SOB . no complaints OBJECTIVE: NAD Cv : RRR Lungs: CTAB Ext : varicose veins , with no erythema or edema ASSESSMENT AND PLAN: 48 y/o man with no medical f/u who presented with R sided CP and was found to have PE 1- PE : could be provoked given his travelling hx. - hypercoagulable and malignancy w/u neg to date - pending is cryoglobulin, complement level , and anticardiolipin. - need Hep C checked, can be dose as out pt - cont coumadin . dc on 10 mg given INR 2.9 - risks and benefits of couma d in were explaind. he understand traumatic and spontaneous bleeding risk even life threatening bleed . diet and compliance were discussed - will book him apt with resident clinic on sunday to follow his INR - f/u with heme as out pt to complete hypercoagulable w/u - he will stay in [place] fro a while and he is willing to follow up . Dc home today
--- NOTE | 2018-12-25 18:10 | DS ---
Physical Exam: SUBJECTIVE: Patient seen and examined OBJECTIVE: Vital Signs Period Temp Pulse Resp BP Sys/Wilson Pulse Ox Last 24 Hr 98 F-98.1 F 75-91 18-18 109-118/59-69 98-100 PHYSICAL EXAM GENERAL: The patient is awake, alert, and fully oriented, in no acute distress. HEAD: Normal with no signs of trauma. EYES: PERRL, extraocular movements intact, sclera anicteric, conjunctiva clear. ENT: Ears normal, nares patent, oropharynx clear without exudates, moist mucous membranes. NECK: Trachea midline, full range of motion, supple. LUNGS: Breath sounds equal, clear to auscultation bilaterally, no wheezes, no crackles, no accessory muscle use. HEART: Regular rate and rhythm, S1, S2 without murmur, rub or gallop. ABDOMEN: Soft, nontender, nondistended, normoactive bowel sounds, no guarding, no rebound, no hepatosplenomegaly, no masses. EXTREMITIES: 2+ pulses, warm, well-perfused, no edema. NEUROLOGICAL: Cranial nerves II through XII grossly intact. Normal speech, gait not observed. PSYCH: Normal mood, normal affect. SKIN: Warm, dry, normal turgor, no rashes or lesions noted. LABS Laboratory Results - last 24 hr 12/25/18 12/25/18 12/25/18 07:30 07:45 12:45 WBC 5.9 RBC 5.67 H Hgb 13.5 Hct 42.8 MCV 75.6 L MCH 23.9 L MCHC 31.6 L RDW 14.6 Plt Count 346 MPV 8.8 PT with INR 29.60 H 34.80 H INR 2.49 H 2.92 H PTT (Actin FS) 50.3 H HOSPITAL COURSE: Date of Admission:12/17/18 This is a 48 y/o M, w a PMH of [facility], admitted for CTA confirmed pulmonary infract s/p traveling from [place] to [place] by car. Pt has no hx of PE. Pt placed on heparin gtt and full hypercoaguability and malignancy w/u was done and found to be negative. Pt was bridged to coumadin and discharged on 10mh coumadin given INR of 2.9 and expected to follow up on sunday at residency clinic for rpt INR check to adjust coumadin accordingly. Date of Discharge: 12/25/18 Minutes to complete discharge: 35 Discharge Summary Reason For Visit: PULMONARY INFARCTION Condition: Improved - Instructions Diet, Activity, Other Instructions: You were admitted for having blood clots in your lungs. We did an image (CTA) which showed the blood clots. We monitored your heart and did numerous blood tests. You were evaluated by lung doctors here and we placed you on a blood thinner called coumadin and you are to continue that at home. You will need to have your blood level (INR) checked every week while on the drug to make sure your dose is adequate. You were evaluated by a blood doctor here and they ordered numerous blood tests which so far have all been normal, however, you must follow up with them for the remaining results and recommendations going forward. - You will need to follow up with your lung doctor in 1 week (Dr. Wolf). - You will need to follow up with your primary care doctor with Dr. Roland Tellez (supervised by Dr. Michaud) in 1 week for weekly blood checks (INR). Appointment was made for 01/01/19 at 8:30AM. - You will need to follow up with the blood doctor (Dr. Loredo) to assess further why you had these clots. Medication to continue at home: Coumadin 10mg once daily Please refrain from any alcohol use especially while on the blood thinner medication. Return to the emergency room if you experience worsening of your current symptoms or: chest pain, rapid heart beat, shortness of breath, fever, chills. next INR 12/27/18 . goal 2-3 Referrals: [facility] [place] [facility] [place] [Provider Group] - 1 Week Roland Tellez RES [Resident] - 1 Week Disposition: HOME - Home Medications Comprehensive Discharge Medication List: Ambulatory Orders Warfarin Sodium [Coumadin] 10 mg PO DAILY #360 tablet 12/25/18 This patient is new to me today: No Emergency Visit: Yes ED Registration Date: 12/17/18 Care time: The patient presented to the Emergency Department on the above date and was hospitalized for further evaluation of their emergent condition. Critical Care patient: No - Discharge Referral Referred to [facility] Med P.C.: No ATTENDING PHYSICIAN STATEMENT I saw and evaluated the patient. I reviewed the resident's note and discussed the case with the resident. I agree with the resident's findings and plan as documented. SUBJECTIVE: OBJECTIVE: ASSESSMENT AND PLAN:
== END 2018-12-25 16:56 | disposition home or self-care (01) | DRG 134 ==
LOC: JER 18:27 → JERBED 12-17 00:52 → J4W 12-17 19:32 → J6S 12-19 18:49
PROVIDERS: ADMIT Internal Medicine; ATTEND Internal Medicine
DX: I26.99 Other pulmonary embolism without acute cor pulmonale (principal); R07.9 Chest pain, unspecified; Z68.1 Body mass index [BMI] 19.9 or less, adult; R04.2 Hemoptysis; E43 Unspecified severe protein-calorie malnutrition; R64 Cachexia; D64.9 Anemia, unspecified; J18.9 Pneumonia, unspecified organism; F17.210 Nicotine dependence, cigarettes, uncomplicated
CPT/HCPCS: 36415; 71045-TC-FY; 71275-TC; 74177-TC; 77074-TC-FY; 80053; 81003; 82272; 82550; 82553; 82595; 82728; 82784; 83021; 83540; 83550; 83615; 83883; 84153; 84155; 84165; 84484; 85025; 85027; 85303; 85379; 85610; 85651; 85660; 85730; 86038; 86140; 86162; 86334; 86431; 86480; 87040; 87070; 87086; 87205; 87389; 87491; 87591; 87899; 93005; 93010; 93306-TC; 93970-TC; 99285-25; J0131; J1644; J7030

== ENCOUNTER 2019-01-17 08:04 | Emergency (ER) | payer SELFPAY ==
[2019-01-17 08:12] VITALS: BP 122/76; PULSE 88; TEMP 97.7; BMI 17.1
[2019-01-17 08:54] LABS: URINE APPEARANCE CLEAR; URINE BILIRUBIN NEGATIVE (NEGATIVE); URINE COLOR YELLOW; URINE GLUCOSE (UA) NEGATIVE (NEGATIVE); URINE KETONE NEGATIVE (NEGATIVE); URINE LEUK ESTERASE NEGATIVE (NEGATIVE); URINE NITRITE NEGATIVE (NEGATIVE); URINE PROTEIN NEGATIVE (NEGATIVE); URINE UROBILINOGEN 0.2 mg/dL (0.2-1.0)
--- NOTE | 2019-01-17 09:21 | PDOC ---
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 Chest pain is non-radiating, located in the left chest, pt reportedly clutched his chest, appeared pale, sat down for 2-3 minutes and felt better after drinking an ensure. Denies f/c/sob/n/v/ diaphoresis. Also endorses episode of left leg "locking up" in a cramp which concerns him given recent episodes of leg pain prior to his PE admission. Denies tearing pain, difficulty bleeding, active chest pain at time of interview. All: KNDA Meds: Coumadin PMH: Recent PE PSH: denies FHx: DM, HTN Past History - Travel Traveled outside of the country in the last 30 days: No Close contact w/someone who was outside of country & ill: No - Past Medical History Allergies/Adverse Reactions: Allergies Allergy/AdvReac Type Severity Reaction Status Date / Time No Known Allergies Allergy Verified 01/17/19 08:08 Home Medications: Ambulatory Orders Warfarin Sodium [Coumadin] 10 mg PO HS #360 tablet 12/25/18 COPD: No - Suicide/Smoking/Psychosocial Hx Smoking History: Former smoker Have you smoked in the past 12 months: No Information on smoking cessation initiated: No 'Breaking Loose' booklet given: 12/17/18 Hx Alcohol Use: No Drug/Substance Use Hx: No Substance Use Type: None Review of Systems - Review of Systems Able to Perform ROS?: Yes Is the patient limited French proficient: Yes Constitutional: No: Chills, Diaphoresis, Fever, Weakness HEENTM: No: Eye Pain, Nose Congestion, Tinnitus, Throat Pain, Throat Swelling, Mouth Pain Respiratory: No: Cough, Shortness of Breath, Wheezing Cardiac (ROS): Yes: Chest Pain. No: Edema, Irregular Heart Rate, Palpitations, Syncope, Chest Tightness ABD/GI: No: Abdominal Distended, Constipated, Diarrhea, Nausea, Poor Appetite, Poor Fluid Intake, Vomiting : No: Burning, Dysuria, Discharge, Frequency Musculoskeletal: No: Back Pain, Joint Pain, Joint Swelling Integumentary: No: Bruising, Change in Hair/Nails, Rash Neurological: No: Headache, Numbness, Tingling Psychiatric: No: Anxiety, Depression Hematologic/Lymphatic: Yes: See HPI, Blood Clots All Other Systems: Reviewed and Negative *Physical Exam - Vital Signs Last Vital Signs Temp Pulse Resp BP Pulse Ox 97.7 F 88 18 122/76 98 01/17/19 08:05 01/17/19 08:05 01/17/19 08:05 01/17/19 08:05 01/17/19 08:05 - Physical Exam Comments: 01/17/19 09:23 Vitals reviewed, AFVSS Gen: WDWN man in NAD, sitting up in bed HEENT: NCAT, EOMI, trachea midline, normal morphologies CV: RRR, Nl s1/s2, no murmurs rubs or gallops appreciated Pulm: CATBL, normal WOB, speaking full sentences, no wheezes / rales / rhonchi Abd: Soft, nontender, nondistended Ext: WWP, no clubbing / cyanosis / edema, soft compartments, left leg nontender , nonswollen Pulses: 2+ radial, PT Neuro: alert and oriented, MAEE, CN grossly intact Heart Score/ECG Review - History History: Slightly suspicious - Electrocardiogram EKG: Normal - Age Age: 45-65 - Risk Factors Based on the list above the patient has:: No risk factors known - Troponin Troponin: </= normal limit - Score Heart Score - Total: 1 ED Treatment Course - LABORATORY CBC & Chemistry Diagram: 01/17/19 08:50 01/17/19 08:50 - ADDITIONAL ORDERS Additional order review: Laboratory Results 01/17/19 08:45 Urine Color Yellow Urine Appearance Clear Urine pH 8.0 D Ur Specific [place] 1.021 Urine Protein Negative Urine Glucose (UA) Negative Urine Ketones Negative Urine Blood Negative Urine Nitrite Negative Urine Bilirubin Negative Urine Urobilinogen 0.2 Ur Leukocyte Esterase Negative Medical Decision Making - Medical Decision Making 01/17/19 09:27 48yo M with PMH pulmonary embolism with recent admission, discharged on Coumadin , presenting after 1 minute "punching" pain in LLQ yesterday evening and 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 HEART Score 1. Concerning for r/o ACS, PE (in setting of recent PE - currently on therapeutic anticoagulation), atypical chest pain, vs msk vs anxiety. -CBC, CMP, CP, Lipase, PT/INR, PTT -CXR, EKG, LLE Duplex Pt Sister: Praveen 01/17/19 10:21 -No leukocytosis or anemia on CBC -INR therapeutic -No metabolic derangements -Nl kidney function -Nl LFTs -Troponin negative -Lipase wnl -UA negative Pt without any episodes of CP while in the ED. CXR without mediastinal widening, infiltrates or effusion on my read. EKG unchanged from prior. Awaiting results of LLE. Single troponin adequate; patient now >4 hours since pain episode, no recurrence in the ED, first troponin negative, EKG normal, HEART Score 1 F/u as scheduled with PCP in clinic next week. Dispo: Home 01/17/19 10:30 -LLE DVT study without signs of DVT *DC/Admit/Observation/Transfer Diagnosis at time of Disposition: Atypical chest pain - Discharge Dispostion Disposition: HOME Condition at time of disposition: Improved Decision to Admit order: No - Referrals Referrals: [facility] [place] [facility] [place] [Provider Group] - Patient Instructions Additional Instructions: You were seen and evaluted in the ED for your chest / abdominal / leg pain. Please follow up with your primary care provider at your appointment scheduled for next week. Return to the ED if you have any new or concerning symptoms including but not limited to chest pain, shortness of breath, leg swelling and pain. - Post Discharge Activity
[2019-01-17 09:44] LABS: BASO % 1.5 % (0-2.0); EOS % 12.3 % (0-4.5); HEMATOCRIT 42.6 % (35.4-49); HEMOGLOBIN 13.4 GM/dL (11.7-16.9); LYMPH % 17.5 % (8-40); MCH 23.6 pg (25.7-33.7); MCHC 31.5 g/dl (32.0-35.9); MEAN PLT VOLUME 8.7 fl (7.5-11.1); MONO % 7.1 % (3.8-10.2); NEUT % 61.6 % (42.8-82.8); PLATELET COUNT 182 K/MM3 (134-434); RBC 5.68 M/mm3 (4.00-5.60); RDW 14.7 % (11.9-15.9); WHITE BLOOD COUNT 7.3 K/mm3 (4.0-10.0)
[2019-01-17 09:51] LABS: ALBUMIN 3.7 g/dl (3.4-5.0); BILIRUBIN,TOTAL 0.3 mg/dL (0.2-1); BLOOD UREA NITROGEN 13.9 mg/dL (7-18); CALCIUM 9.5 mg/dL (8.5-10.1); CREATININE 0.9 mg/dL (0.55-1.3); POTASSIUM 4.5 mmol/L (3.5-5.1); TOT PROT 7.7 g/dl (6.4-8.2)
[2019-01-17 10:12] LABS: INR 2.09 (0.83-1.09); PROTHROMBIN TIME (PATIENT) 24.9 SEC (9.7-13.0)
[2019-01-17 10:15] LABS: ACTIVATED PTT 42.1 SECONDS (25.2-36.5)
--- NOTE | 2019-01-17 13:57 | EKG ---
Test Reason : Blood Pressure : / mmHG Vent. Rate : 072 BPM Atrial Rate : 072 BPM P-R Int : 116 ms QRS Dur : 082 ms QT Int : 380 ms P-R-T Axes : 047 063 050 degrees QTc Int : 416 ms NORMAL SINUS RHYTHM WITH SINUS ARRHYTHMIA WHEN COMPARED WITH ECG OF 17-DEC-2018 01:08, NO SIGNIFICANT CHANGE WAS FOUND Confirmed by BILLIE BELL MD ([id number]) on 01/17/2019 1:57:03 PM Referred By: Confirmed By:BILLIE BELL MD
== END 2019-01-17 10:57 | disposition home or self-care (01) ==
LOC: JER 08:04
DX: R07.89 Other chest pain (principal); Z86.711 Personal history of pulmonary embolism; Z79.01 Long term (current) use of anticoagulants
CPT/HCPCS: 36415; 71045-TC-FY; 80053; 81003; 82550; 83690; 84484; 85025; 85610; 85730; 87086; 93005; 93010; 93971-TC; 99283-25

== ENCOUNTER 2019-03-22 14:26 | Emergency (ER) | payer OTHER ==
[2019-03-22 14:33] VITALS: BP 132/86; PULSE 94; TEMP 98.4; BMI 19.1
--- NOTE | 2019-03-22 15:39 | PDOC ---
History of Present Illness - General Chief Complaint: Weakness Stated Complaint: WEAKNESS Time Seen by Provider: 03/22/19 14:58 History Source: Patient Exam Limitations: No Limitations Past History - Travel Traveled outside of the country in the last 30 days: No Close contact w/someone who was outside of country & ill: No - Past Medical History Allergies/Adverse Reactions: Allergies Allergy/AdvReac Type Severity Reaction Status Date / Time No Known Allergies Allergy Verified 03/22/19 14:33 Home Medications: Ambulatory Orders Warfarin Sodium [Coumadin] 10 mg PO HS #360 tablet 12/25/18 COPD: No Other medical history: LUNG PE - Psycho Social/Smoking Cessation Hx Smoking History: Never smoked Have you smoked in the past 12 months: No 'Breaking Loose' booklet given: 12/17/18 Hx Alcohol Use: No Drug/Substance Use Hx: No Substance Use Type: None Review of Systems - Review of Systems Able to Perform ROS?: Yes Comments:: 03/22/19 19:34 CONSTITUTIONAL: Present: Generalized weakness absent: fever, chills, diaphoresis, generalized weakness, malaise, loss of appetite HEENT: Absent: rhinorrhea, nasal congestion, throat pain, throat swelling, difficulty swallowing, mouth swelling, ear pain, eye pain, visual Changes CARDIOVASCULAR: Absent: chest pain, loss of consciousness, palpitations, irregular heart rate, peripheral edema RESPIRATORY: Absent: cough, shortness of breath, dyspnea with exertion, orthopnea, wheezing, stridor, hemoptysis GASTROINTESTINAL: Absent: abdominal pain, abdominal distension, nausea, vomiting, diarrhea, constipation, melena, hematochezia GENITOURINARY: Absent: dysuria, frequency, urgency, hesitancy, hematuria, flank pain, genital pain MUSCULOSKELETAL: Absent: myalgia, arthralgia, joint swelling SKIN: Absent: rash, itching, pallor HEMATOLOGIC/IMMUNOLOGIC: Absent: easy bleeding, easy bruising, lymphadenopathy, frequent infections ENDOCRINE: Absent: unexplained weight gain, unexplained weight loss, heat intolerance, cold intolerance NEUROLOGIC: Absent: headache, focal weakness or paresthesias, dizziness, unsteady gait, seizure, mental status changes, bladder or bowel incontinence PSYCHIATRIC: Absent: anxiety, depression, suicidal or homicidal ideation, hallucinations. Is the patient limited [place]er proficient: No *Physical Exam - Vital Signs Last Vital Signs Temp Pulse Resp BP Pulse Ox 98.4 F 94 H 18 132/86 98 03/22/19 14:27 03/22/19 14:27 03/22/19 14:27 03/22/19 14:27 03/22/19 14:27 - Physical Exam Comments: 03/22/19 19:34 GENERAL: Well developed, well nourished. Awake and alert. No acute distress. HEENT: Normocephalic, atraumatic. PERRLA, EOMI. No conjunctival pallor. Sclera are non- icteric. Moist mucous membranes. Oropharynx is clear. NECK: Supple. Full ROM. CARDIOVASCULAR: Regular rate and rhythm. No murmurs, rubs, or gallops. Distal pulses are 2+ and symmetric. PULMONARY: No evidence of respiratory distress. Lungs clear to auscultation bilaterally. No wheezing, rales or rhonchi. ABDOMINAL: Soft. Non-tender. Non-distended. No rebound or guarding. No organomegaly. Normoactive bowel sounds. MUSCULOSKELETAL Normal range of motion at all joints. No bony deformities or tenderness. No CVA tenderness. EXTREMITIES: No cyanosis. No clubbing. No edema. No calf tenderness. SKIN: Warm and dry. Normal capillary refill. No rashes. No jaundice. NEUROLOGICAL: Alert, awake, appropriate. Cranial nerves 2-12 intact. No deficits to light touch and temperature in face, upper extremities and lower extremities. No motor deficits in the in face, upper extremities and lower extremities. Normoreflexic in the upper and lower extremities. Normal speech. Toes are down- going bilaterally. Gait is normal without ataxia. PSYCHIATRIC: Cooperative. Good eye contact. Appropriate mood and affect. Medical Decision Making - Medical Decision Making 03/22/19 19:34 The patient is a 48-year-old male with past medical history of PE, currently on warfarin, presents to the ER today for generalized weakness. He states the weakness started 1 hour ago prior to taking a hit of marijuana. He states that since he has been sitting in the emergency department he now feels back to normal and has no complaints. A/P: Adverse medical reaction Exam is benign, patient has no complaints. Suspect his weakness was due to a adverse drug reaction from marijuana Advised patient to stop smoking Discharge home Return precautions given I discussed the physical exam findings, ancillary test results and final diagnoses with the patient. I answered all of the patient's questions. The patient was satisfied with the care received and felt comfortable with the discharge plan and treatment plan. The Patient agrees to follow up with the primary care physician/specialist within 24-72 hours. Return precautions were given. Discharge - Discharge Information Problems reviewed: Yes Clinical Impression/Diagnosis: Adverse drug reaction Qualifiers: Encounter type: initial encounter Qualified Code(s): T50.905A - Adverse effect of unspecified drugs, medicaments and biological substances, initial encounter Condition: Stable Disposition: HOME - Admission No - Follow up/Referral Referrals: Juan C Guzman MD [Primary Care Provider] - - Patient Discharge Instructions Patient Printed Discharge Instructions: DI for Adverse Drug Reaction -- Other Additional Instructions: Your evaluated for your weakness. Is most likely caused by the marijuana use smoked early. Avoid marijuana Follow-up with your primary care doctor on Sunday. Return to the ER for any new or worsening symptoms - Post Discharge Activity
== END 2019-03-22 15:50 | disposition home or self-care (01) ==
LOC: JERFT 14:26
DX: R53.1 Weakness (principal); T40.7X5A Adverse effect of cannabis (derivatives), initial encounter; Y92.89 Other specified places as the place of occurrence of the external cause; Z86.711 Personal history of pulmonary embolism; Z79.01 Long term (current) use of anticoagulants
CPT/HCPCS: 99281-25

== ENCOUNTER 2020-01-30 07:43 | Emergency (ER) | payer OTHER ==
--- OUTSIDE RECORDS SUMMARY | 2020-01-30 08:09 | XMS ---
:1970 Author [facility] Support Name Relationship Address Phone CODY COX [address] [place] [address] [phone] [place] [id number] UE Unavailable Unavailable Unavailable LAURA VILLA [address] [place] [address] [phone] [place] [phone] Re-disclosure Warning The records that you are about to access may contain information from federally- assisted alcohol or drug abuse programs. If such information is present, then the following federally mandated warning applies: This information has been disclosed to you from records protected by federal confidentiality rules (42 CFR part 2). The federal rules prohibit you from making any further disclosure of this information unless further disclosure is expressly permitted by the written consent of the person to whom it pertains or as otherwise permitted by 42 CFR part 2. A general authorization for the release of medical or other information is NOT sufficient for this purpose. The Federal rules restrict any use of the information to criminally investigate or prosecute any alcohol or drug abuse patient.The records that you are about to access may contain highly sensitive health information, the redisclosure of which is protected by Article 27-F of the [facility] Public Health law. If you continue you may haveaccess to information: Regarding HIV / AIDS; Provided by facilities licensed or operated by the [facility] Office of Mental Health; or Provided by the [facility] Office for People With Developmental Disabilities. If such information is present, then the following [facility] mandated warning applies: This information has been disclosed to you from confidential records which are protected by state law. State law prohibits you from making any further disclosure of this information without the specific written consent of the person to whom it pertains, or as otherwise permitted by law. Any unauthorized further disclosure in violation of state law may result in a fine or [place] health care facility sentence or both. A general authorization for the release of medical or other information is NOT sufficient authorization for further disclosure. Insurance Providers Payer name Policy type Policy ID Covered Covered republican's Policy P veto / Coverage republican ID relationship to [place] Inf ormation type [place] MEDICAID [id number] SP [id number] SELF PAY SP INSURANCE PENDING EXCHANGE
[2020-01-30 08:22] VITALS: TEMP 98.1; BMI 20.9
[2020-01-30] MEDS ORDERED: ONDANSETRON 4 MG/2 ML VIAL IVPUSH ONE (08:47)
[2020-01-30] MEDS ORDERED: MAG HYDROX/AL HYDROX/SIMETH 30 ML UNIT-DOSE CUP PO ONE (08:47)
[2020-01-30] MEDS ORDERED: FAMOTIDINE 20 MG/50 ML IVPB 20 MG/50 ML MG IVPB ONE ×2 (08:49→09:06)
[2020-01-30] MEDS ORDERED: MAG HYDROX/AL HYDROX/SIMETH 30 ML UNIT-DOSE CUP ONE (09:06)
[2020-01-30 09:26] LABS: BASO % 1.4 % (0-2.0); HEMATOCRIT 43.6 % (35.4-49); LYMPH % 24.2 % (8-40); MCH 24.4 pg (25.7-33.7); MEAN CELL VOLUME 76.2 fl (80-96); MEAN PLT VOLUME 9.6 fl (7.5-11.1); MONO % 8.5 % (3.8-10.2); NEUT % 57.9 % (42.8-82.8); PLATELET COUNT 154 K/MM3 (134-434); RBC 5.73 M/mm3 (4.00-5.60); RDW 14.2 % (11.9-15.9); WHITE BLOOD COUNT 6.3 K/mm3 (4.0-10.0)
--- NOTE | 2020-01-30 10:02 | PDOC ---
Documentation entered by Elvie John SCRIBE, acting as scribe for Dorene Gardner MD. Dorene Gardner MD: This documentation has been prepared by the scribe, Elvie John SCRIBE, under my direction and personally reviewed by me in its entirety. I confirm that the documentation accurately reflects all work, treatment, procedures, and medical decision making performed by me. Attending Attestation - Resident Resident Name: Bernardo Wick - ED Attending Attestation I have performed the following: I have examined & evaluated the patient, The case was reviewed & discussed with the resident, I agree w/resident's findings & plan, Exceptions are as noted - HPI HPI: 01/30/20 09:56 The patient is a 49-year-old male with a past medical history significant for PE who presents to the emergency department with intermittent episodes of chest pain radiating down to the abdomen for the past 2 months. The patient reports symptom relief with tums. Denies fever or chills. Denies shortness of breath. - Physicial Exam PE: 01/30/20 09:39 General: well appearing Chest: CTAB, good air entry, no wheezes rales or rhonchi CVS: + s1 s2, RRR Abdomen: soft, nt, no rebound, no guarding - Medical Decision Making 01/30/20 09:40 49 yo M with atypical chest pain x>2 months, improved with tums, doubt ACS and EKG sinus without ischemic changes. More likely GERD vs. msk pain. Plan: -labs -cxr -pepcid -maalox -reassess, if labs unremarkable will d/c with return precautions, recommend PMD f/u This clinical encounter is taking place during a federal and state health care emergency attributable to the novel Diaz Virus pandemic. The Extension Division Director of the Department of Health and Human Services has declared, pursuant to the Public Health Service Act 319F-3 (42 U.S.C. 247d-6d), that a covered persons activities related to medical countermeasures against COVID-19 will be immune from liability under Federal and State law. Discharge - Discharge Information Problems reviewed: Yes Clinical Impression/Diagnosis: Atypical chest pain GERD (gastroesophageal reflux disease) Qualifiers: Esophagitis presence: without esophagitis Qualified Code(s): K21.9 - Gastro- esophageal reflux disease without esophagitis Condition: Stable Disposition: HOME - Follow up/Referral - Patient Discharge Instructions Patient Printed Discharge Instructions: DI for Gastroesophageal Reflux Disease (GERD), DI for Atypical Chest Pain Additional Instructions: You were seen in the ER for chest discomfort. Your EKG and bloodwork were normal. Follow up with your primary care physician as soon as possible, in the next 2-3 days. Return to the ER if you develop worsening chest pain, difficulty breathing, weakness, confusion. - Post Discharge Activity
[2020-01-30 10:12] LABS: ALBUMIN 3.8 g/dl (3.4-5.0); ALK PHOS 75 U/L (45-117); ANION GAP 5 MMOL/L (8-16); BILIRUBIN,TOTAL 0.4 mg/dL (0.2-1); BLOOD UREA NITROGEN 11.8 mg/dL (7-18); CALCIUM 9.1 mg/dL (8.5-10.1); CHLORIDE 107 mmol/L (98-107); CO2 29 mmol/L (21-32); CREATININE 0.9 mg/dL (0.55-1.3); GLUCOSE,RANDOM 80 mg/dL (74-106); LIPASE 94 U/L (73-393); POTASSIUM 4.3 mmol/L (3.5-5.1); SGOT/AST 16 U/L (15-37); SGPT/ALT 21 U/L (13-61); SODIUM 142 mmol/L (136-145); TOT PROT 7.6 g/dl (6.4-8.2)
--- NOTE | 2020-01-30 10:20 | PDOC ---
History of Present Illness - General Chief Complaint: Chest Pain Stated Complaint: BURNING SENSATION Time Seen by Provider: 01/30/20 08:21 History Source: Patient Past History - Medical History Allergies/Adverse Reactions: Allergies Allergy/AdvReac Type Severity Reaction Status Date / Time No Known Allergies Allergy Verified 01/30/20 09:20 Home Medications: Ambulatory Orders NK [No Known Home Medication] 01/30/20 COPD: No - Psycho-Social/Smoking History Smoking History: Never smoked Have you smoked in the past 12 months: No Information on smoking cessation initiated: No 'Breaking Loose' booklet given: 12/17/18 - Substance Abuse Hx (Audit-C & DAST Scrn) How often the patient has a drink containing alcohol: Never Score: In Men: 4 or > Positive; In Women: 3 or > Positive: 0 Screen Result (Pos requires Nsg. Audit-10AR): Negative In the last yr the pt used illegal drug/Rx for NonMed reason: No Score: Yes response is considered Positive: 0 Screen Result (Positive result requires Nsg. DAST-10): Negative *Physical Exam - Vital Signs Last Vital Signs Temp Pulse Resp BP Pulse Ox 98.1 F 73 15 142/97 99 01/30/20 08:05 01/30/20 08:05 01/30/20 08:05 01/30/20 08:05 01/30/20 08:05 ED Treatment Course - LABORATORY CBC & Chemistry Diagram: 01/30/20 09:00 01/30/20 09:00 - ADDITIONAL ORDERS Additional order review: Laboratory Results 01/30/20 09:00 Sodium 142 Potassium 4.3 Chloride 107 Carbon Dioxide 29 Anion Gap 5 L BUN 11.8 Creatinine 0.9 Est GFR (CKD-EPI)AfAm 114.21 Est GFR (CKD-EPI)NonAf 98.54 Random Glucose 80 Calcium 9.1 Total Bilirubin 0.4 AST 16 ALT 21 Alkaline Phosphatase 75 Troponin I < 0.02 Total Protein 7.6 Albumin 3.8 Lipase 94 01/30/20 09:00 RBC 5.73 H MCV 76.2 L MCHC 32.0 RDW 14.2 MPV 9.6 D Neutrophils % 57.9 Lymphocytes % 24.2 D Monocytes % 8.5 Eosinophils % 8.0 H Basophils % 1.4 - RADIOLOGY Radiology Studies Ordered: Category Date Time Status CHEST X-RAY PORTABLE* [RAD] Stat Radiology 01/30/20 08:47 Completed - Medications Given in the ED: ED Medications Discontinued Medications Generic Name Dose Route Start Last Admin Trade Name Landon PRN Reason Stop Dose Admin Al Hydroxide/Mg Hydroxide 30 ml 01/30/20 08:47 01/30/20 09:13 Mylanta Oral Suspension - PO 01/30/20 08:48 30 ml ONCE ONE Administration Famotidine/Sodium Chloride 20 mg in 50 mls @ 100 mls/hr 01/30/20 08:49 01/30/20 09:13 Pepcid 20 Mg Premixed Ivpb - IVPB 01/30/20 09:18 100 mls/hr ONCE ONE Administration Ondansetron HCl 4 mg 01/30/20 08:47 01/30/20 09:14 Zofran Injection IVPUSH 01/30/20 08:48 Not Given ONCE ONE Discharge - Discharge Information Problems reviewed: Yes Clinical Impression/Diagnosis: Atypical chest pain GERD (gastroesophageal reflux disease) Qualifiers: Esophagitis presence: without esophagitis Qualified Code(s): K21.9 - Gastro- esophageal reflux disease without esophagitis Condition: Stable Disposition: HOME - Admission No - Follow up/Referral - Patient Discharge Instructions Patient Printed Discharge Instructions: DI for Atypical Chest Pain, DI for Gastroesophageal Reflux Disease (GERD) Additional Instructions: You were seen in the ER for chest discomfort. Your EKG and bloodwork were normal. Follow up with your primary care physician as soon as possible, in the next 2-3 days. Return to the ER if you develop worsening chest pain, difficulty breathing, weakness, confusion. - Post Discharge Activity
--- NOTE | 2020-01-30 10:33 | EKG ---
Test Reason : Blood Pressure : / mmHG Vent. Rate : 053 BPM Atrial Rate : 053 BPM P-R Int : 122 ms QRS Dur : 100 ms QT Int : 436 ms P-R-T Axes : 055 040 031 degrees QTc Int : 409 ms SINUS BRADYCARDIA WHEN COMPARED WITH ECG OF 17-JAN-2019 08:56, NO SIGNIFICANT CHANGE WAS FOUND Confirmed by BILLIE BELL MD ([id number]) on 01/30/2020 10:33:22 AM Referred By: Confirmed By:BILLIE BELL MD
[2020-01-30 10:35] VITALS: BP 119/83; PULSE 59
== END 2020-01-30 10:45 | disposition home or self-care (01) ==
LOC: JER 07:43
PROC: 3E033NZ Introduction of Analgesics, Hypnotics, Sedatives into Peripheral Vein, Percutaneous Approach (ICD-10-PCS; principal; 2020-01-30)
PROC: 3E033GC Introduction of Other Therapeutic Substance into Peripheral Vein, Percutaneous Approach (ICD-10-PCS; 2020-01-30)
DX: R07.89 Other chest pain (principal); K21.9 Gastro-esophageal reflux disease without esophagitis
CPT/HCPCS: 36415; 71045-TC-FY; 80053; 83690; 84484; 85025; 93005; 93010; 99285-25

== ENCOUNTER 2022-02-06 09:16 | Emergency (ER) | payer OTHER ==
[2022-02-06 09:27] VITALS: BP 122/76; PULSE 74; RESP 18; TEMP 97.6; BMI 20.9
[2022-02-06] MEDS ORDERED: IBUPROFEN 600 MG TABLET (FP) PO ONE ×2 (10:03→10:09)
== END 2022-02-06 16:28 | disposition home or self-care (01) ==
LOC: JERFT 09:16 → JER 09:16 → JERFT 16:28
DX: L25.9 Unspecified contact dermatitis, unspecified cause (principal); M25.511 Pain in right shoulder
CPT/HCPCS: 73030-TC-RT-FY; 93971; 93971-TC; 99285-25

== ENCOUNTER 2023-03-26 09:10 | Emergency (ER) | payer OTHER ==
[2023-03-26 09:15] VITALS: BP 135/79; PULSE 96; RESP 17; TEMP 97.7; BMI 20.7
[2023-03-26 12:21] LABS: CALCIUM 9.7 mg/dL (8.5-10.1)
[2023-03-26 12:23] LABS: ALBUMIN 3.8 g/dl (3.4-5.0); BLOOD UREA NITROGEN 11.8 mg/dL (7-18)
[2023-03-26 12:26] LABS: EOS % 3.4 % (0-4.5); HEMATOCRIT 44.1 % (35.4-49); HEMOGLOBIN 14.1 GM/dL (11.7-16.9); LYMPH % 24.6 % (8-40); MCH 23.6 pg (25.7-33.7); MEAN CELL VOLUME 73.8 fl (80-96); MEAN PLT VOLUME 8.4 fl (7.5-11.1); MONO % 8.3 % (3.8-10.2); NEUT % 61.7 % (42.8-82.8); PLATELET COUNT 210 10^3/uL (134-434); RBC 5.97 M/mm3 (4.00-5.60); RDW 14.7 % (11.9-15.9); WHITE BLOOD COUNT 5.7 K/mm3 (4.0-10.0)
[2023-03-26 12:27] LABS: BILIRUBIN,TOTAL 0.5 mg/dL (0.2-1); TOT PROT 8.2 g/dl (6.4-8.2)
== END 2023-03-26 14:00 | disposition home or self-care (01) ==
LOC: JER 09:10
DX: R20.0 Anesthesia of skin (principal); M25.511 Pain in right shoulder; R94.31 Abnormal electrocardiogram [ECG] [EKG]
CPT/HCPCS: 36415; 70450-TC; 73030-TC-RT-FY; 80053; 83735; 85025; 93005; 93010; 99285-25